=== PATIENT | female | born 1975 | race Caucasian/White ===

== ENCOUNTER → 2018-11-03 09:20 | Outpatient (CLI) | payer OTHER, SELFPAY ==
--- NOTE | 2018-11-03 09:23 | MM_ITS ---
MM Dig screening mamm BI w/CAD ORDERING PHYSICIAN : Atif Lazo MD PATIENT AGE: 43 years GENDER: Female COMPARISON: Bilateral mammogram October 2017 & January 2015 distal left mammogram and ultrasound studies 10/30/2017 Right mammogram September 2015 INDICATION: ITS.REASON: SCREENING TECHNIQUE: Standard CC and MLO images were obtained. R2 CAD reviewed. FINDINGS: Asymmetric breast. Increased overall density reflecting increased fibroglandular elements again seen throughout the upper-outer quadrant left breast more so than right . RIGHT BREAST:. Stable right breast follow-up in one year adequate. LEFT BREAST: Again suggestion of focal nodularity at upper-outer quadrant left breast best seen at the lateral breast on today's cc views. This area Labeled X. This was noted before and seem to compress out however since it appears slightly larger and slightly more apparent on today's cc view (measuring 13 mm transverse), suggest follow-up spot views & ultrasound to again further evaluate. This this area labeled X is within a area of diffuse breast density & with this the routine screening mammography images are somewhat limited. Thus ultrasound and spot views will be helpful compliment to again evaluate this area IMPRESSION: 1. Left breast.: Vague focal ovoid density upper-outer quadrant left breast labeled X again seen, within a region of dense breast tissue.. This was previously evaluated but seems to be slightly larger on today's cc view. Although this could be due to overlapping shadows, would again recommend spot views, & ultrasound to further evaluate this area at left breast. 2. Right breast: . Stable right breast follow-up in one year BI-RADS Category: 0 Need Additional Imaging Evaluation RECOMMENDED FOLLOW-UP: IMM - IMMEDIATE FOLLOW-UP RECOMMENDED Additional Spot views & Ultrasound left breast- to further evaluate vague focal area of density labeled X (A letter has been sent to the patient regarding results of the study.)
== END ==
PROVIDERS: PCP Physician Assistant; Visit Provider Obstetrics & Gynecology
DX: Z12.31 Encounter for screening mammogram for malignant neoplasm of breast (principal)
CPT/HCPCS: 77067

== ENCOUNTER → 2018-12-03 15:14 | Outpatient (CLI) | payer OTHER, SELFPAY ==
--- NOTE | 2018-12-03 15:17 | MM_ITS ---
MM Dig mamm DX unilat LT CAD, US breast LT complete INDICATION: Follow-up abnormal mammogram, asymmetric density ORDERING PHYSICIAN: Atif Lazo MD PATIENT AGE: 43 years COMPARISON: 11/03/2018, 10/30/2017 TECHNIQUE: Dense fibroglandular tissue which decreases the sensitivity of mammography FINDINGS: There is an asymmetric rounded area of increased density in the lateral aspect of the left breast with central area of lucency. This has a similar appearance when compared to 10/30/2017 compression views only well-seen on the cc view. No malignant appearing mass or malignant appearing microcalcification. Left breast ultrasound: COMPARISON is made to 10/30/2017. 3 mm cyst at 12:00 3 mm cyst at 1:00 5 mm cyst 2:00 near the nipple.. Additional 4 mm cyst at 2:00 near the nipple Small nodes are present in the axilla. No discrete mass is evident that correspond to the mammographic abnormality. IMPRESSION: Overall stable appearance compared to 10/30/2017 exam. No evidence of malignancy. Asymmetric density is felt to be related to overlapping fibroglandular tissue and is stable BI-RADS Category: 2 Benign Finding(s) RECOMMENDED FOLLOW-UP: 1YR - 1 YEAR FOLLOW-UP (A letter has been sent to the patient regarding results of the study.)
== END ==
PROVIDERS: PCP Physician Assistant; Visit Provider Obstetrics & Gynecology
DX: N63.20 Unspecified lump in the left breast, unspecified quadrant (principal)
CPT/HCPCS: 76641; 77065

== ENCOUNTER → 2019-12-22 16:12 | Outpatient (CLI) | payer OTHER, SELFPAY ==
--- NOTE | 2019-12-22 16:12 | MM_ITS ---
PROCEDURE: MM DIG SCREENING MAMM BI W/CAD CLINICAL INDICATION: screening mammogram There is no personal or family history of breast cancer COMPARISON: [facility] MM Dig screening mamm BI w/CAD from 11/03/2018 DXLT MM Dig mamm DX unilat LT CAD from 12/03/2018 TECHNIQUE: Standard CC and MLO images were obtained. Hay images were performed.. FINDINGS: [id number] fibroglandular densities are seen in both breast primarily upper outer quadrants. The findings of bilateral and symmetrical. There is a mole marker left breast. Hay images were reviewed showing no persistent suspicious abnormality. No suspicious microcalcifications. IMPRESSION: Moderate breast density with no suspicious lesions seen BI-RAD Category: 1 Negative FOLLOW-UP: 1YR 1 Year Follow-up (A letter has been sent to the patient regarding results of the study.) Dictated by: Dr. Howard Hawley MD 12/28/2019 11:[address] Howard Hawley MD in [place] 12/28/2019 11:37
== END ==
PROVIDERS: PCP Physician Assistant; Visit Provider Obstetrics & Gynecology
DX: Z12.31 Encounter for screening mammogram for malignant neoplasm of breast (principal)
CPT/HCPCS: 77063; 77067

== ENCOUNTER → 2021-02-28 09:16 | Outpatient (CLI) | payer OTHER, SELFPAY ==
--- NOTE | 2021-02-28 09:17 | MM_ITS ---
PROCEDURE: MM DIG SCREENING MAMM BI W/CAD Digital Breast Tomosynthesis Included CLINICAL INDICATION: screening There is no personal or family history of breast cancer. COMPARISON: MG [facility] MM Dig screening mamm BI w/CAD from 11/03/2018 MG DXLT MM Dig mamm DX unilat LT CAD from 12/03/2018 MG MM DIG SCREENING MAMM BI W/CAD from 12/22/2019 TECHNIQUE: Standard CC and MLO images and 3D Tomosynthesis was obtained. R2 CAD reviewed. FINDINGS: Mild to moderate fibroglandular densities are seen in both breast primarily upper outer quadrants. There is a mole marker left breast. There is a low-lying node left axilla. There is no suspicious lesion in either breast and no suspicious microcalcifications. IMPRESSION: Mild to moderate breast density with no suspicious lesions seen BI-RAD Category: 2 Benign Finding(s) FOLLOW-UP: 1YR 1 Year Follow-up (A letter has been sent to the patient regarding results of the study.) Dictated by: Dr. Howard Hawley MD 03/06/2021 08:40 Dr. Howard Hawley MD in [place] 03/06/2021 08:40
== END ==
PROVIDERS: PCP Physician Assistant; Visit Provider Obstetrics & Gynecology
DX: Z12.31 Encounter for screening mammogram for malignant neoplasm of breast (principal)
CPT/HCPCS: 77063; 77067

== ENCOUNTER → 2022-03-06 07:41 | Outpatient (CLI) | payer OTHER, SELFPAY ==
--- NOTE | 2022-03-06 07:41 | MM_ITS ---
PROCEDURE INFORMATION: Exam: MG Bilateral Screening 3D Mammography Exam date and time: 03/06/2022 7:57 AM Age: 46 years old Clinical indication: Screening examination. No family history of breast cancer. TECHNIQUE: Imaging protocol: Bilateral Screening tomosynthesis and 2D mammography including computer-aided detection (CAD) when performed. COMPARISON: 1. MG MM DIG SCREENING MAMM BI W/CAD 02/28/2021 9:21 AM 2. MG MM DIG SCREENING MAMM BI W/CAD 12/22/2019 4:25 PM 3. MG DXLT MM Dig mamm DX unilat LT CAD 12/03/2018 3:34 PM 4. MG [facility] MM Dig screening mamm BI w/CAD 11/03/2018 9:41 AM FINDINGS: MAMMOGRAPHY: Breast composition: The breast tissue is composed of scattered areas of fibroglandular density. Mass: No suspicious mass. Architectural distortion: None. Calcifications: No suspicious calcifications. Asymmetric density: No developing asymmetry. Skin thickening: None. Axillary adenopathy: None. IMPRESSION: No mammographic evidence of malignancy. Annual screening is recommended unless otherwise clinically indicated. ASSESSMENT: BI-RADS Category 1: Negative
== END ==
PROVIDERS: PCP Nurse Practitioner Family; Visit Provider Obstetrics & Gynecology
DX: Z12.31 Encounter for screening mammogram for malignant neoplasm of breast (principal)
CPT/HCPCS: 77063; 77067

== ENCOUNTER → 2023-03-20 16:12 | Outpatient (CLI) | payer OTHER, SELFPAY ==
--- NOTE | 2023-03-20 16:13 | MM_ITS ---
PROCEDURE INFORMATION: Exam: MG Bilateral Screening 3D Mammography Exam date and time: 03/20/2023 4:07 PM Age: 47 years old Clinical indication: Screening mammogram TECHNIQUE: Imaging protocol: Bilateral Screening tomosynthesis and 2D mammography including computer-aided detection (CAD) when performed. COMPARISON: 1. MG MM DIG SCREENING MAMM BI W/CAD 03/06/2022 7:57 AM 2. MG MM DIG SCREENING MAMM BI W/CAD 02/28/2021 9:21 AM 3. MG MM DIG SCREENING MAMM BI W/CAD 12/22/2019 4:25 PM 4. MG DXLT MM Dig mamm DX unilat LT CAD 12/03/2018 3:34 PM FINDINGS: MAMMOGRAPHY: Breast composition: The breast is heterogeneously dense, which may obscure small masses. Mass: None. Architectural distortion: No new or suspicious architectural distortion. Calcifications: No new or suspicious calcifications are present Asymmetric density: No new or suspicious asymmetric density is present Skin thickening: None. Axillary adenopathy: None. IMPRESSION: No mammographic evidence of malignancy. Recommend annual screening mammography unless otherwise clinically indicated. ASSESSMENT: BI-RADS category 1: Negative
== END ==
PROVIDERS: PCP Nurse Practitioner Family; Visit Provider Obstetrics & Gynecology
DX: Z12.31 Encounter for screening mammogram for malignant neoplasm of breast (principal)
CPT/HCPCS: 77063; 77067

== ENCOUNTER → 2023-05-01 16:34 | Outpatient (CLI) | payer OTHER, SELFPAY ==
--- NOTE | 2023-05-01 16:40 | US_ITS ---
PROCEDURE INFORMATION: Exam: US Pelvis, Transvaginal Exam date and time: 05/01/2023 5:02 PM Age: 47 years old Clinical indication: Menstruation abnormalities; Irregular menstruation; Prior surgery; Surgery date: 6+ months; Surgery type: RT oopherectomy; Additional info: Abnormal heavy uterine bleeding TECHNIQUE: Imaging protocol: Real-time transvaginal pelvic ultrasound with image documentation. Transvaginal imaging was used for better evaluation of the endometrium, adnexa, and/or cervix. COMPARISON: No relevant prior studies available. FINDINGS: Uterus: Uterine fibroids measure up to 2.4 cm. Uterus measures 8 x 4.7 x 5.2 cm. The endometrium is 13 mm in thickness. Cervix: Nabothian cysts noted. Right ovary/adnexa: The right ovary is surgically absent. Left ovary/adnexa: There is a 1.5 cm echogenic left ovarian follicle that could be an involuting dominant follicle or a hemorrhagic cyst. Intraperitoneal space: No free fluid. IMPRESSION: 1. Uterine fibroids measure up to 2.4 cm. 2. There is a 1.5 cm echogenic left ovarian follicle that could be an involuting dominant follicle or a hemorrhagic cyst. 3. The endometrium is 13 mm in thickness. This is within normal limits for a premenopausal patient.
== END ==
PROVIDERS: PCP Nurse Practitioner Family; Visit Provider Obstetrics & Gynecology
DX: N93.9 Abnormal uterine and vaginal bleeding, unspecified (principal)
CPT/HCPCS: 76830

== ENCOUNTER 2024-04-23 09:42 | Outpatient (CLI) | payer BC, SELFPAY ==
--- NOTE | 2024-04-23 09:47 | MM_ITS ---
PROCEDURE INFORMATION: Exam: MG Bilateral Screening 3D Mammography Exam date and time: 04/23/2024 9:59 AM Age: 48 years old Clinical indication: Screening examination TECHNIQUE: Imaging protocol: Bilateral Screening tomosynthesis and 2D mammography including computer-aided detection (CAD) when performed. COMPARISON: 1. MG MM DIG SCREENING MAMM BI W/CAD 03/20/2023 4:07 PM 2. MG MM DIG SCREENING MAMM BI W/CAD 03/06/2022 7:57 AM FINDINGS: MAMMOGRAPHY: Breast composition: The breasts are heterogeneously dense, which may obscure small masses. Mass: None. Architectural distortion: None. Calcifications: No suspicious calcifications. Asymmetric density: None. Skin thickening: None. Axillary adenopathy: None. IMPRESSION: No mammographic evidence of malignancy. Annual screening is recommended unless otherwise clinically indicated. ASSESSMENT: BI-RADS Category 1: Negative
== END 2024-04-23 23:59 | disposition home or self-care (01) ==
LOC: RAD 09:42
PROVIDERS: PCP Nurse Practitioner Family; Visit Provider Obstetrics & Gynecology
DX: Z12.31 Encounter for screening mammogram for malignant neoplasm of breast (principal)
CPT/HCPCS: 77063; 77067

== ENCOUNTER 2024-05-06 14:41 | Outpatient (CLI) | payer BC, SELFPAY ==
--- NOTE | 2024-05-06 14:49 | US_ITS ---
PROCEDURE: US TRANSVAGINAL CLINICAL INDICATION: Pelvic Pain COMPARISON: US US TRANSVAGINAL from 05/01/2023 FINDINGS: Transvaginal sonographic images of the pelvis were obtained. UTERUS: 8.1cm x 5.4cmx 4.5cm anteverted with a combined endometrial thickness of 13.3mm. The endometrium appears homogeneous. There is a nabothian cyst measuring 1.6 cm. There is an anterior fibroid measuring 2.2 cm x 1.7 cm x 2.3 cm. Similar in size from her ultrasound 1 year ago. There is a 2nd small anterior fibroid measuring 1.2 cm x 1.2 cm x 1.1 cm. LEFT OVARY: 2.5cmx4.1cmx4.1cm with a volume of 21.7ml. There are 3 discrete follicles within the left ovary giving it a multi-cystic appearance. The largest measures 2.3 cm. RIGHT OVARY: Not visualized. Surgically absent. Doppler flow to left ovary is seen. There is no fluid in the cul-de-sac. IMPRESSION: 1. Anteverted uterus normal in shape and size. The endometrium is homogeneous and normal measuring 13.3 mm. 2. There are two fibroids within the anterior myometrium. Fibroid #1 measures 2.3 cm and fibroid #2 measures 1.2 cm. 3. The right ovary is surgically absent. The left ovary has 3 discrete follicles. The largest measures 2.3 cm. 4. No fluid in the cul-de-sac. Dictated by: Hima Stuart MD 05/06/2024 17:33 Hima Stuart MD in [place] 05/06/2024 17:33
== END 2024-05-06 23:59 | disposition home or self-care (01) ==
LOC: RAD 14:44
PROVIDERS: PCP Nurse Practitioner Family; Visit Provider Obstetrics & Gynecology
DX: R10.2 Pelvic and perineal pain (principal); N88.2 Stricture and stenosis of cervix uteri; R87.618 Other abnormal cytological findings on specimens from cervix uteri; Z80.49 Family history of malignant neoplasm of other genital organs
CPT/HCPCS: 76830

== ENCOUNTER 2025-05-14 13:06 | Outpatient (CLI) | payer BC, SELFPAY ==
--- OUTSIDE RECORDS SUMMARY | 2025-05-14 13:08 | XMS_ITS | Continuity of Care Document ---
Author Organization [place] [employer] Address [address] [place] [address] Assessment No assessment recorded. Plan of Treatment Reminders Order Date Submit Date Provider Last Modified By Organization Details Last Modified Time Details Appointments None recorded. Lab noninvasive colorectal cancer DNA + occult blood screening, QL, stool 2024 025 [place] [employer] (Cologuard Orders Only), [address] [facility], [place] [address], [place], [address], 5 07:52:13 Referral None recorded. Procedures None recorded. Surgeries None recorded. Imaging XR, lumbar spine 2024 025 [email or web address] 7 [facility], [address] [place] [address], [phone], 5 13:29:09 Medication Orders omeprazole 40 mg capsule,del ayed release 2024 025 [place] [facility], [facility] [address], [facility] [address], [place], [id number], 5 14:01:30 amoxicillin 875 mg-potassiu m clavulanate 125 mg tablet 2024 025 [facility], [address] [place] [address], [address], 5 16:44:58 Patient TargetsNo targets recorded. Patient Instructions Encounter Date Encounter Id Patient Instructions Last Modified By Organization Details Last Modified Time 04/19/2025 [id number] Acute Sinusitis: Care Instructions [email or web address] Not available 04/19/2025 14:01:26 Reason for Referral None Reported. Results Created Date Observation Date Name Description Value Unit Range Abnormal Flag Note LastModifiedBy Organization Detail LastModifiedTime 04/19/20 25 XR, lumba r spine No observ ation record ed. [facility] - [address], [address], 04/19/2025 17:42:46 Result Notes None recorded. Problems Name Problem SNOMED Code Status Onset Date Resolution Date Notes Provider Name and Address Organization Details Recorded Time Pain of multiple joints 42286433 Active 2024 KAELA Hall [address] [place] [address], [address], [employer] 5 10:27:18 Constipatio n 55218866 Active 2024 KAELA Hall [address] [place] [address], [address], [employer] 5 10:27:05 Hypothyroid ism 38956576 Active 2024 KAELA Hall [address] [place] [address], [address], [employer] 5 10:27:16 Essential hypertensio n 16328805 Active 2024 KAELA Hall [address] [place] [address], [address], [employer] 5 10:27:08 Mild intermitten t asthma 526184361 Active 2024 KAELA Hall [address] [place] [address], [address], [employer] 5 10:27:14 Hyperlipide abdirahman 57348983 Active 2024 KAELA Hall [address] [place] [address], [address], [employer] 5 10:27:12 Pain in bilateral legs 3096653543057 9108 Active 2024 KAELA Hall [address] [place] [address], [address], [place] [employer] 5 11:26:01 Bilateral lower limb edema 371098705 Active 2024 KAELA Hall [address] [place] [address], [address], [place] [employer] 5 10:22:33 Hypercholes terolemia 57568956 Active Chayo Vice null, [employer] 5 13:31:13 Asthma 672970769 Active Chayo Vice null, [employer] 5 13:31:13 Lipedema 384093215 Active Chayo Vice null, [employer] 5 13:31:13 Hypertensiv e disorder 39219021 Active Chayo Vice null, [employer] 5 13:31:13 History of cholecystec lyle 909840240 Active Chayo Vice null, [employer] 5 13:31:13 Swelling of lower limb 763673792 Active Chayo Vice null, [employer] 5 13:31:13 Varicose veins of lower extremity 33339345 Active Chayo Vice null, [employer] 5 13:31:13 Acute maxillary sinusitis 68432474 Active 2024 KAELA Hall [address] [place] [address], [address], [place] [employer] 5 13:59:33 Gastroesoph ageal reflux disease without esophagitis 258165255 Active 2024 KAELA Hall [address] [place] [address], [address], [employer] 5 14:00:33 Lumbar radiculopat hy 198234693 Active 2024 KAELA Hall [address] [place] [address], [address], [employer] 5 14:07:38 Problem Notes None recorded. Procedures Surgical History Date Name Laterality Status Provider Name and Address Organization Details Recorded Time 4 Most Recent Mammogram completed [employer] [facility] [employer] 01/22/2025 11:02:21 Date of Last Pap Smear completed [employer] [facility] 01/22/2025 11:04:50 Colposcopy completed [employer] [facility] [employer] 12/29/2024 12:58:43 Gallbladder Surgery completed [employer] [facility] [employer] 12/29/2024 12:58:43 Imaging Results None recorded. Procedure Notes None recorded. Medical Equipment None Reported. Allergies No known drug allergies Medications Name Sig Start Date Stop Date Status Note LastModified by Organization Details LastModified Time atorvastati n 10 mg tablet (10 mg) active Not Available Not Available Not Available omeprazole 40 mg capsule,del ayed release Take 1 capsule every day by oral route for 90 days. 2024 active Not Available Not Available Not Avai lable Depo-Medrol 80 mg/mL suspension for injection Take 1 mL by injection route. 04/19 completed Not Available Not Available Not Available levothyroxi ne 100 mcg tablet (100 mcg) active Not Available Not Available No t Available levothyroxi ne 88 mcg tablet Take 1 tablet every day by oral route as directed for 90 days. 12/31 completed Not Available Not Available Not Available cephalexin 500 mg capsule TAKE 1 CAPSULE BY MOUTH TWICE DAILY FOR 10 DAYS 12/26 completed Not Available Not Available Not Available levothyroxi ne 125 mcg tablet TAKE 1 TABLET BY MOUTH EVERY DAY 12/26 completed Not Available Not Available Not Available diclofenac sodium 75 mg tablet,fred yed release (75 mg) active Not Available Not Available Not Available montelukast 10 mg tablet (10 mg) active Not Available Not Available Not Available hydrochloro thiazide 25 mg tablet (25 mg) active Not Available Not Available No t Available albuterol sulfate HFA 90 mcg/actuati on aerosol inhaler Inhale 2 puffs every 4 hours by inhalatio n route as directed for 90 days, for asthma. active Not Available Not Available No t Available ketorolac 60 mg/2 mL intramuscul ar solution Inject 2 mL by intramusc ular route. 04/19 completed Not Available Not Available Not Available lisinopril 40 mg tablet (40 mg) active Not Available Not Available Not Available amoxicillin 875 mg-potassiu m clavulanate 125 mg tablet TAKE ONE TABLET BY MOUTH every 12 hours FOR 10 DAYS active Not Available Not Available No t Available Linzess 145 mcg capsule (145 mcg) active Not Available Not Availabl e Not Available Vitals Date Recorded Body height Body mass index (BMI) Body weight Oxygen saturation Oxygen saturation in Arterial blood by Pulse oximetry Heart rate Body temperature Systolic blood pressure Diastolic blood pressure Provider Name and Address Organization Details Last Updated DateTime 152.4 cm 32.7 kg/m2 15550.6 4 g 97 % 97 % 78 /min 98.1 [degF] 120 mm[Hg] 82 mm[Hg] [employer]. 13:35:04 Social History Question Answer Notes LastModified by Organizat ion Details LastModified Time Tobacco Smoking Status Former Smoker [employer]o [employer] 12/29/2024 12:58:43 Do You Have An Advance Directive? No Information not available 12/29/2024 Is Your Home Air Conditioned? Yes Information not available 12/29/2024 If You Are , What Was Your Level Of Alcohol Consumption Prior To ? None Information not available 12/29/2024 Do You Wear A Helmet When Biking? No Information not available 12/29/2024 Are You Blind Or Do You Have Difficulty Seeing? No Information not available 12/29/2024 What Is Your Level Of Caffeine Consumption? Moderate Information not available 12/29/2024 What Type Of Java Architect Do You Use? None Information not available 12/29/2024 In The 14 Days Before Symptom Onset, Have You Had Close Contact With A Laboratory-confir med COVID-19 While That Case Was Ill? No [email or web address] Information not available 01/22/2025 In The 14 Days Before Symptom Onset, Have You Had Close Contact With A Person Who Is Under Investigation For COVID-19 While That Person Was Ill? No Information not available 01/22/2025 Have You Been To An Area Known To Be High Risk For COVID-19? No Information not available 12/29/2024 Are You Deaf Or Do You Have Serious Difficulty Hearing? No Information not available 12/29/2024 What Type Of Diet Are You Following? REGULAR Information not available 12/29/2024 Who Is Your Employer? [employer] Information not available 12/29/2024 How Many Days Of Moderate To Strenuous Exercise, Like A Brisk Walk, Did You Do In The Last 7 Days? 1 Information not available 12/29/2024 Have There Been Any Changes To Your Family Or Social Situation? No Information no t available 12/29/2024 When Did You Quit Smoking? 11-15yearssinc elastcigarette Information not available 12/29/2024 Are There Any Guns Present In Your Home? Yes Information not available 12/29/2024 Which Of Your Hands Is Dominant? Left Information not available 12/29/2024 What Is Your Home Situation? Other Information not available 12/29/2024 Do You Have A Medical Power Of Research Soil Scientist? No Information not available 12/29/2024 What Was The Date Of Your Most Recent Tobacco Screening? 04/19/2025 Information not available 04/19/2025 Are There Any Occupational Health Risks Where You Work? No Information not available 12/29/2024 What Is Your Current Pack Years? 10packyears Information not available 12/29/2024 Do You Have Any Pets? Yes Information not available 12/29/2024 Do You Use Protection During Sex? No Information not available 12/29/2024 What Is Your Relationship Status? Information not available 12/29/2024 Have You Repeated Any Grades? No Information not available 12/29/2024 Do You Use Your Seat Belt Or Car Seat Routinely? Yes Information not available 12/29/2024 Are You Sexually Active? Yes Information not available 12/29/2024 Do You Have Smoke And Carbon Monoxide Detectors In Your Home? Yes Information not available 12/29/2024 At What Age Did You Start Smoking Tobacco? 27 Information not available 12/29/2024 Are You Passively Exposed To Smoke? No Information no t available 12/29/2024 Are There Any Smokers In Your House? Yes Information not available 12/29/2024 How Much Tobacco Do You Smoke? No Information not available 12/29/2024 Do You Participate In Social Media? Yes Information not available 12/29/2024 Do You Use Sunscreen Routinely? No Information not available 12/29/2024 Has Tobacco Cessation Counseling Been Provided? No Information not available 12/29/2024 How Many Years Have You Smoked Tobacco? 13 Information not available 12/29/2024 Have You Recently Traveled Abroad? No Information not available 12/29/2024 Do You Have Difficulty Walking Or Climbing Stairs? No Information not available 12/29/2024 Are You Currently In School? No Information not available 12/29/2024 Do You Have Any Dietary Restrictions? No Information not available 12/29/2024 Sex: Female Functional Status Question Answer Note LastModified by Organizat ion Details LastModified Time Do you use any illicit or recreational drugs? No Information not available 12/29/2024 Do you or have you ever used any other forms of tobacco or nicotine? No Information not available 12/29/2024 What is your level of alcohol consumption? None Information not available 12/29/2024 Are you currently employed? Yes Information not available 12/29/2024 Do you have transportation difficulties? No Information not available 12/29/2024 Are you able to walk? YESWOREST Information not available 12/29/2024 Do you have difficulty doing errands alone? No Information not available 12/29/2024 Are you able to care for yourself? 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 No Information not available 12/29/2024 What is your exercise level? Occasional Information not available 12/29/2024 Mental Status Question Answer Note LastModified by Organizat ion Details LastModified Time Do you feel stressed (tense, restless, nervous, or anxious, or unable to sleep at night)? [id number] Information not available 12/29/2024 Do you have difficulty concentrating, remembering or making decisions? No Information no t available 12/29/2024 Are you or have you been involved with bullying? No Information not available 12/29/2024 Family History Relationship Description Onset Age of this Age Resolved Age Notes LastModified by Organization Details LastModified Time Mother Malignant tumor of cervix Not available 2024 12:58:42 Mother Arthritis Not available 12/29/2024 12:58:42 Mother Hypertensive disorder Not available 2024 12:58:42 Medical History Condition Response Thyroid Problems Y Hypertension Y Asthma Y High Cholesterol Y Gynecological History Statement/Question Response Abnormal Pap N Flow Moderate Date of LMP 03/29/2025 HPV Vaccine N Duration of Flow (days) 7 days Age at Menarche 13 Most Recent Mammogram 04/23/2024 Age at First Child 1 Frequency of Cycle (Q days) 29 Menses Monthly Y Date of Last Pap Smear 04/12/2024 LMP Approximate Obstetrics History GPAL:G 1 P 0 0 1 0 Type Value Multiple Births 0 Full Term 0 Induced 0 Spontaneous 0 Premature 0 Living 0 Ectopics 1 Total 1 Immunizations Vaccine Type Date Status Note Provider Nam e and Address Organization Details Recorded Time COVID-19, mRNA, LNP-S, PF, 30 mcg/0.3 mL dose 12/14/2020 completed Chayo Vice null, [employer] 12/29/2024 12:58:53 COVID-19, mRNA, LNP-S, PF, 30 mcg/0.3 mL dose 01/03/2021 completed Chayo Vice null, [employer] 12/29/2024 12:58:53 Influenza, split virus, quadrivalent, PF 01/15/2023 completed Chayomaria g holguin, [employer] 12/29/2024 12:58:53 Past Encounters Encounter ID Performer Location Encounter Start Date Encounter Closed Date Diagnosis/Indication Diagnosis SNOMED-CT Code Diagnosis ICD10 Code Diagnosis Note [id number] KAELA Hall [facility] [address] [place] [address] 04/19/2025 13:15:11 04/19/2025 14:19:05 Screening for malignant neoplasm of colon 316689498 Z12.11 Acute maxi llary sinusitis 20138211 J01.00 Gastroesop hageal reflux disease without esophagitis 586688692 K21.9 Lumbar radiculopathy 128 934641 M54.16 May need MRI but Xray lumbar spine (has failed PT and chiro) Health Concerns Section Related Observation LastModified by Organization Detai ls LastModified Time None Recorded Concern Status LastModified by Organization Details LastModified Time None Recorded Payers Encounter Date Sequence Insurance Name Policy Number Policy Torrse Covered Member ID Torres Member ID Guarantor Name 04/19/2025 1 [employer] [id number] Torri Mejia [id number] Torri Mejia Notes Date Note Type Note Provider Name and Address Organization Details Recorded Time 04/19/2025 text/html Patient presents for followup.Sinus pain and pressure for 1 week. Allergy meds not helping. Pain worse when she bends forwards and she gets dizzy.Thinks she has acid reflux. Used to be on Omeprazole. Gets choked after eating and vomits bile/phlegm.Low back pain is getting worse. Worse on right side. She has seen chiropractor with no improvement in pain. Did PT in the past. Has seen leg/vein specialist but doesn't have $4000 for the surgery. KAELA Hall [address] [place] [address], [place], [address], [place] [facility] [employer] 04/19/2025 16:31:31 OBGyn Episode No OBEpisode recorded.
--- OUTSIDE RECORDS SUMMARY | 2025-05-14 13:09 | XMS_ITS | Data Portability ---
Author Organization [place] - [facility] - [place] [facility] [place] ORIN ADMIN Address [address] [place] [id number] Care Team Providers Care Sales Store Checker Name Role Phone TAVO HOLLINS Primary Care Provider [phone] Assessment Encounter Date Assessment Date Assessment LastModified by Organization Details LastModified Time 01/29/2024 01/29/2024 Blood drawn in Right AC by ALISTAIR Carrero, patient tolerated well [email or web address] Not available 01/29/2024 12:51:18 02/26/2024 02/26/2024 Blood drawn in Left AC by ALISTAIR Carrero, patient tolerated well [email or web address] Not available 02/26/2024 10:33:10 Plan of Treatment Reminders Order Date Submit Date Provider Last Modified By Organization Details Last Modified Time Details Appointments None recorded. Lab Mycobacter ium tuberculos is stimulated gamma interferon , qual, blood 2023 024 [facility], [address] [place], [address], 4 16:10:28 TSH + free T4, serum 2023 024 [facility], [address] [place], [address], 4 09:37:58 rapid strep group A, throat 2023 024 [facility], [address] [place], [address], 4 11:03:17 influenza virus A + B + SARS-CoV-2 (COVID19) Ag panel, rapid IA, upper respirator y specimen 2023 024 [facility], [address] [place], [address], 4 11:03:17 TSH + free T4, serum 2023 024 [facility], [address] [place] [address], [address], 4 07:15:28 magnesium, serum or plasma 2023 024 [facility], [address] [place] [address], [address], 4 08:22:29 vitamin B12 + folate, serum or blood 2023 024 [facility], [address] [place] [address], [address], 4 08:22:28 CMP, serum or plasma 2023 024 [facility], [address] [place] [address], [address], 4 08:22:26 CBC w/ auto diff 2023 024 [facility], [address] [place] [address], [address], 4 08:22:25 TSH + free T4, serum 2023 024 [facility], [address] [place] [address], [address], 4 08:22:24 lipid panel, serum 2023 024 [facility], [address] [place] [address], [address], 4 08:22:27 Referral None recorded. Procedures None recorded. Surgeries None recorded. Imaging None recorded. Medication Orders cephalexin 500 mg capsule 2023 [id number], [address], [id number], 4 10:48:06 diclofenac sodium 75 mg tablet,del ayed release 2023 [facility][id number], [address], [id number], 4 15:54:55 albuterol sulfate HFA 90 mcg/actuat ion aerosol inhaler 2023 024 [facility][id number], [address] [place], [id number], 4 15:54:54 Patient TargetsNo targets recorded. Patient InstructionsNo instructions recorded. Reason for Referral None Reported. Results Created Date Observation Date Name Description Value Unit Range Abnormal Flag Note LastModifiedBy Organization Detail LastModifiedTime 01/29/2001/30/2024 TSH+F REE T4 TSH 0.029 uIU/m L 0.450- 4.500 below low normal Not Available [facility] ([facility]) [address] [place], [address], 01/30/2024 08:22:24 01/29/2001/30/2024 TSH+F REE T4 T4,free(dire ct) 2.54 NG/dL 0.82-1 .77 above high normal Not Available [facility] ([facility]) [address] [place], [address], 01/30/2024 08:22:24 01/29/20 24 01/30/2024 CBC WITH DIFFE RENTI AL/PL ATELE T WBC 7.2 x10e3 /uL 3.4-10 .8 Not Available [facility] ([facility]) [address] [place], [address], 01/30/2024 08:22:25 01/29/20 24 01/30/2024 CBC WITH DIFFE RENTI AL/PL ATELE T RBC 4.28 x10e6 /uL 3.77-5 .28 Not Available [facility] ([facility]) [address] [facility], [place], [address], 01/30/2024 08:22:25 01/29/20 24 01/30/2024 CBC WITH DIFFE RENTI AL/PL ATELE T hemoglobin 13.6 g/dL 11.1-1 5.9 Not Available [facility] ([facility]) [address] [facility], [place], [address], 01/30/2024 08:22:25 01/29/20 24 01/30/2024 CBC WITH DIFFE RENTI AL/PL ATELE T hematocrit 39.7 % 34.0-4 6.6 Not Available [facility] ([facility]) [address] [facility], [place], [address], 01/30/2024 08:22:25 01/29/20 24 01/30/2024 CBC WITH DIFFE RENTI AL/PL ATELE T MCV 93 fL 79-97 Not Available [facility] ([facility]) [address] [place], [address], 01/30/2024 08:22:25 01/29/20 24 01/30/2024 CBC WITH DIFFE RENTI AL/PL ATELE T MCH 31.8 pg 26.6-3 3.0 Not Available [facility] ([facility]) [address] [place], [address], 01/30/2024 08:22:25 01/29/20 24 01/30/2024 CBC WITH DIFFE RENTI AL/PL ATELE T MCHC 34.3 g/dL 31.5-3 5.7 Not Available [facility] ([facility]) [address] [place], [address], 01/30/2024 08:22:25 01/29/20 24 01/30/2024 CBC WITH DIFFE RENTI AL/PL ATELE T RDW 12.1 % 11.7-1 5.4 Not Available [facility] ([facility]) [address] [facility], [place], [address], 01/30/2024 08:22:25 01/29/20 24 01/30/2024 CBC WITH DIFFE RENTI AL/PL ATELE T platelets 317 x10e3 /uL 150-45 0 Not Available [facility] ([facility]) [address] [facility] [place], [address], 01/30/2024 08:22:25 01/29/20 24 01/30/2024 CBC WITH DIFFE RENTI AL/PL ATELE T neutrophils 49 % not estab. Not Available [facility] ([facility]) [address] [facility], [place], [address], 01/30/2024 08:22:25 01/29/20 24 01/30/2024 CBC WITH DIFFE RENTI AL/PL ATELE T lymphs 36 % not estab. Not Available [facility] ([facility]) [address] [facility], [place], [address], 01/30/2024 08:22:25 01/29/20 24 01/30/2024 CBC WITH DIFFE RENTI AL/PL ATELE T monocytes 9 % not estab. Not Available [facility] ([facility]) [address] [facility] [place], [address], 01/30/2024 08:22:25 01/29/20 24 01/30/2024 CBC WITH DIFFE RENTI AL/PL ATELE T eos 5 % not estab. Not Available [facility] ([facility]) [address] [facility], [place], [address], 01/30/2024 08:22:25 01/29/20 24 01/30/2024 CBC WITH DIFFE RENTI AL/PL ATELE T basos 1 % not estab. Not Available [facility] ([facility]) [address] [place], [address], 01/30/2024 08:22:25 01/29/20 24 01/30/2024 CBC WITH DIFFE RENTI AL/PL ATELE T immature cells WARDROBE MANAGER Not Available [facility] ([facility]) [address] [facility] [place], [address], 01/30/2024 08:22:25 01/29/20 24 01/30/2024 CBC WITH DIFFE RENTI AL/PL ATELE T neutrophils (absolute) 3.5 x10e3 /uL 1.4-7. 0 Not Available [facility] ([facility]) [address] [facility] [place], [address], 01/30/2024 08:22:25 01/29/20 24 01/30/2024 CBC WITH DIFFE RENTI AL/PL ATELE T lymphs (absolute) 2.6 x10e3 /uL 0.7-3. 1 Not Available [facility] ([facility]) [address] [place], [address], 01/30/2024 08:22:25 01/29/20 24 01/30/2024 CBC WITH DIFFE RENTI AL/PL ATELE T monocytes(ab solute) 0.7 x10e3 /uL 0.1-0. 9 Not Available [facility] ([facility]) [address] [place], [address], 01/30/2024 08:22:25 01/29/20 24 01/30/2024 CBC WITH DIFFE RENTI AL/PL ATELE T eos (absolute) 0.3 x10e3 /uL 0.0-0. 4 Not Available [facility] ([facility]) [address] [place], [address], 01/30/2024 08:22:25 01/29/20 24 01/30/2024 CBC WITH DIFFE RENTI AL/PL ATELE T baso (absolute) 0.1 x10e3 /uL 0.0-0. 2 Not Available [facility] ([facility]) [address] [facility], [place], [address], 01/30/2024 08:22:25 01/29/20 24 01/30/2024 CBC WITH DIFFE RENTI AL/PL ATELE T immature granulocytes 0 % not estab. Not Available [facility] ([facility]) [address] [facility] [place], [address], 01/30/2024 08:22:25 01/29/20 24 01/30/2024 CBC WITH DIFFE RENTI AL/PL ATELE T immature grans (abs) 0.0 x10e3 /uL 0.0-0. 1 Not Available [facility] ([facility]) [address] [facility], [place], [address], 01/30/2024 08:22:25 01/29/20 24 01/30/2024 CBC WITH DIFFE RENTI AL/PL ATELE T NRBC WARDROBE MANAGER Not Available [facility] ([facility]) [address] [facility] [place], [address], 01/30/2024 08:22:25 01/29/20 24 01/30/2024 CBC WITH DIFFE RENTI AL/PL ATELE T hematology comments: WARDROBE MANAGER Not Available [facility] ([facility]) [address] [place], [address], 01/30/2024 08:22:25 01/29/20 24 01/30/2024 COMP. METAB OLIC PANEL (14) glucose 90 mg/dL 70-99 Not Available [facility] ([facility]) [address] [place], [address], 01/30/2024 08:22:26 01/29/20 24 01/30/2024 COMP. METAB OLIC PANEL (14) BUN 28 mg/dL 6-24 above high normal Not Available [facility] ([facility]) [address] [place], [address], 01/30/2024 08:22:26 01/29/20 24 01/30/2024 COMP. METAB OLIC PANEL (14) creatinine 1.14 mg/dL 0.57-1 .00 above high normal Not Available [facility] ([facility]) [address] [facility] [place], [address], 01/30/2024 08:22:26 01/29/20 24 01/30/2024 COMP. METAB OLIC PANEL (14) eGFR 60 mL/mi n/1.7 3 >59 Not Available [facility] ([facility]) [address] [facility] [place], [address], 01/30/2024 08:22:26 01/29/20 24 01/30/2024 COMP. METAB OLIC PANEL (14) BUN/creatini ne ratio 25 9-23 above high normal Not Available [facility] ([facility]) [address] [facility] [place], [address], 01/30/2024 08:22:26 01/29/20 24 01/30/2024 COMP. METAB OLIC PANEL (14) sodium 139 mmol/ L 134-14 4 Not Available [facility] ([facility]) [address] [facility] [place], [address], 01/30/2024 08:22:26 01/29/20 24 01/30/2024 COMP. METAB OLIC PANEL (14) potassium 4.3 mmol/ L 3.5-5. 2 Not Available [facility] ([facility]) [address] [facility] [place], [address], 01/30/2024 08:22:26 01/29/20 24 01/30/2024 COMP. METAB OLIC PANEL (14) chloride 100 mmol/ L 96-106 Not Available [facility] ([facility]) [address] [facility], [place], [address], 01/30/2024 08:22:26 01/29/20 24 01/30/2024 COMP. METAB OLIC PANEL (14) carbon dioxide, total 23 mmol/ L Not Available [facility] ([facility]) [address] [place], [address], 01/30/2024 08:22:26 01/29/20 24 01/30/2024 COMP. METAB OLIC PANEL (14) calcium 9.7 mg/dL 8.7-10 .2 Not Available [facility] ([facility]) [address] [place], [address], 01/30/2024 08:22:26 01/29/20 24 01/30/2024 COMP. METAB OLIC PANEL (14) protein, total 7.4 g/dL 6.0-8. 5 Not Available [facility] ([facility]) [address] [place], [address], 01/30/2024 08:22:26 01/29/20 24 01/30/2024 COMP. METAB OLIC PANEL (14) albumin 4.5 g/dL 3.9-4. 9 Not Available [facility] ([facility]) [address] [place], [address], 01/30/2024 08:22:26 01/29/20 24 01/30/2024 COMP. METAB OLIC PANEL (14) globulin, total 2.9 g/dL 1.5-4. 5 Not Available [facility] ([facility]) [address] [place], [address], 01/30/2024 08:22:26 01/29/20 24 01/30/2024 COMP. METAB OLIC PANEL (14) A/G ratio 1.6 1.2-2. 2 Not Available [facility] ([facility]) [address] [place], [address], 01/30/2024 08:22:26 01/29/20 24 01/30/2024 COMP. METAB OLIC PANEL (14) bilirubin, total 0.7 mg/dL 0.0-1. 2 Not Available [facility] ([facility]) [address] [place], [address], 01/30/2024 08:22:26 01/29/20 24 01/30/2024 COMP. METAB OLIC PANEL (14) alkaline phosphatase 89 IU/L 44-121 Not Available [facility] ([facility]) [address] [place], [address], 01/30/2024 08:22:26 01/29/20 24 01/30/2024 COMP. METAB OLIC PANEL (14) AST (SGOT) 22 IU/L 0-40 Not Available [facility] ([facility]) [address] [place], [address], 01/30/2024 08:22:26 01/29/20 24 01/30/2024 COMP. METAB OLIC PANEL (14) ALT (SGPT) 29 IU/L 0-32 Not Available [facility] ([facility]) [address] [place], [address], 01/30/2024 08:22:26 01/29/20 24 01/30/2024 LIPID PANEL cholesterol, total 161 mg/dL 100-19 9 Not Available [facility] ([facility]) [address] [place], [address], 01/30/2024 08:22:27 01/29/20 24 01/30/2024 LIPID PANEL triglyceride s 165 mg/dL 0-149 above high normal Not Available [facility] ([facility]) [address] [place], [address], 01/30/2024 08:22:27 01/29/20 24 01/30/2024 LIPID PANEL HDL cholesterol 46 mg/dL >39 Not Available [facility] ([facility]) [address] [place], [address], 01/30/2024 08:22:27 01/29/20 24 01/30/2024 LIPID PANEL VLDL cholesterol opal 28 mg/dL 5-40 Not Available [facility] ([facility]) [address] [place], [address], 01/30/2024 08:22:27 01/29/20 24 01/30/2024 LIPID PANEL LDL chol calc ([facility]) 87 mg/dL 0-99 Not Available [facility] ([facility]) [address] [place], [address], 01/30/2024 08:22:27 01/29/20 24 01/30/2024 LIPID PANEL comment: WARDROBE MANAGER Not Available [facility] ([facility]) [address] [facility] [place], [address], 01/30/2024 08:22:27 01/29/20 24 01/30/2024 VITAM IN B12 AND FOLAT E vitamin B12 526 pg/mL 232-12 45 Not Available [facility] ([facility]) [address] [facility] [place], [address], 01/30/2024 08:22:28 01/29/20 24 01/30/2024 VITAM IN B12 AND FOLAT E folate (folic acid), serum 17.3 NG/mL >3.0 A serum folat e elvin ntrat ion of less than 3.1 ng/mL is consi dered to repre sent clini opal defic iency . Not Available [facility] ([facility]) [address] [facility] [place], [address], 01/30/2024 08:22:28 01/29/20 24 01/30/2024 MAGNE SIUM magnesium 2.1 mg/dL 1.6-2. 3 Not Available [facility] ([facility]) [address] [facility] [place], [address], 01/30/2024 08:22:29 02/26/20 24 02/27/2024 TSH+F REE T4 TSH 1.310 uIU/m L 0.450- 4.500 Not Available [facility] ([facility]) [address] [facility] [place], [address], 02/27/2024 07:15:28 02/26/20 24 02/27/2024 TSH+F REE T4 T4,free(dire ct) 1.83 NG/dL 0.82-1 .77 above high normal Not Available [facility] ([facility]) [address] [facility] [place], [address], 02/27/2024 07:15:28 02/26/20 24 02/26/2024 influ michele virus A + B + SARS- CoV-2 (COVI D19) Ag panel , rapid IA, upper respi rator y speci men FLU A negati ve Not Available [facility] [address] [place], [address], 02/26/2024 10:28:59 02/26/20 24 02/26/2024 influ michele virus A + B + SARS- CoV-2 (COVI D19) Ag panel , rapid IA, upper respi rator y speci men FLU B negati ve Not Available [facility] [address] [place], [address], 02/26/2024 10:28:59 02/26/20 24 02/26/2024 influ michele virus A + B + SARS- CoV-2 (COVI D19) Ag panel , rapid IA, upper respi rator y speci men SARS COV + SARS OV 2 negati ve Not Available [facility] [address] [place], [address], 02/26/2024 10:28:59 02/26/20 24 02/26/2024 rapid strep group A, throa t Strep negati ve Not Available [facility] [address] [place], [address], 02/26/2024 10:29:06 05/29/20 24 05/30/2024 TSH+F REE T4 TSH 4.340 uIU/m L 0.450- 4.500 Not Available [facility] ([facility]) [address] [place], [address], 05/30/2024 09:37:58 05/29/20 24 05/30/2024 TSH+F REE T4 T4,free(dire ct) 1.73 NG/dL 0.82-1 .77 Not Available [facility] ([facility]) [address] [place], [address], 05/30/2024 09:37:58 10/22/20 24 10/23/2024 QUANT IFERO N-TB GOLD PLUS quantiferon incubation INCUBA TION PERFOR MED. Not Available [facility] ([facility]) [address] [place], [address], 10/24/2024 16:10:28 10/22/20 24 10/23/2024 QUANT IFERO N-TB GOLD PLUS quantiferon criteria COMMEN T Quant iFERO N-TB Gold Plus is a quali tativ e indir ect test for M tuber culos is infec tion (incl uding disea se) and is inten ded for use in conju nctio n with risk asses sment , radio graph y, and other medic al and diagn ostic evalu ation s. The Quant iFERO N-TB Gold Plus resul t is deter mined by subtr actin g the Nil value from eithe r TB antig en (Ag) value . The Mitog en tube serve s as a contr ol for the test. Not Available [facility] ([facility]) [address] [place], [address], 10/24/2024 16:10:28 10/22/20 24 10/24/2024 QUANT IFERO N-TB GOLD PLUS quantiferon TB1 Ag value 0.01 IU/mL Not Available [facility]) [address] [place], [address], 10/24/2024 16:10:28 10/22/20 24 10/24/2024 QUANT IFERO N-TB GOLD PLUS quantiferon TB2 Ag value 0.01 IU/mL Not Available [facility]) [address] [place], [address], 10/24/2024 16:10:28 10/22/20 24 10/24/2024 QUANT IFERO N-TB GOLD PLUS quantiferon nil value 0.00 IU/mL Not Available [facility] ([facility]) [address] [place], [address], 10/24/2024 16:10:28 10/22/20 24 10/24/2024 QUANT IFERO N-TB GOLD PLUS quantiferon mitogen value >10.00 IU/mL Not Available [facility] ([facility]) [address] [place], [address], 10/24/2024 16:10:28 10/22/20 24 10/24/2024 QUANT IFERO N-TB GOLD PLUS quantiferon- TB gold plus NEGATI VE negati ve No respo nse to M alvaro tijerina is antig ens detec jennyfer. Infec tion with M alvaro noyolaos is is unlik jarad, but high risk indiv idual s shoul d be consi dered for addit ional testi ng (ATS/ IDSA/ CDC Clini opal Pract ice Guide lines , 2017) . The refer ence range is an Antig en minus Nil resul t of <0.35 IU/mL . Chemi lumin escen ce immun oassa y metho dolog y Not Available [facility] ([facility]) [address] [facility] [place], [address], 10/24/2024 16:10:28 04/24/20 24 04/23/2024 imagi ng inter preta tion No observ ation record ed. [email or web address] [facility] [address], [place], [address], 04/24/2024 15:59:38 05/06/20 24 05/06/2024 imagi ng inter preta tion No observ ation record ed. [email or web address] [facility] [address], [place], [address], 05/08/2024 11:55:33 Result Notes None recorded. Problems Name Problem SNOMED Code Status Onset Date Resolution Date Notes Provider Name and Address Organization Details Recorded Time Hypothyroidism 83970852 Active 2021 Macrina holguin, [place] - [facility] - [place] [facility] [place] 2 08:38:26 Hyperlipidemia 91654610 Active 2021 Macrina [place] [facility] [place] 2 08:38:31 Gastroesophage al reflux disease 635864719 Active 2021 Macrina Mayer null, [place] - [facility] [place] [facility] [place] 2 08:38:47 Seasonal allergic rhinitis 995307416 Active 2021 Macrina Mayer null, [place] - [facility] [place] [facility] [place] 2 08:39:11 Essential hypertension 07000958 Active 2021 Macrina [place]gu[place], [place] - [facility] [place] [facility] [place] 2 08:39:18 Problem Notes None recorded. Procedures Surgical History Date Name Laterality Status Provider Name and Address Organization Details Recorded Time 04/29/20 23 completed TAVO HOLLINS NP [address] [place], [address], [place] [facility] [place] 05/10/2023 15:29:39 04/04/20 23 Date of Last Pap Smear completed TAVO HOLLINS NP [address] [place], [address], [place] [facility] [place] 05/10/2023 15:29:39 06/10/20 20 Date of Last Colonoscopy completed TAVO OHLLINS NP [address] [facility], [place], [address], [place] - [facility] - [place] [facility] [place] 05/10/2023 15:29:39 Other completed Macrina ASIF - [facility] - [place] [facility] [place] 11/15/2022 08:37:34 Cholecystectomy completed Macrina ASIF - [facility] & [place] 11/15/2022 08:41:26 operative procedure on ovary and/or fallopian tube completed Macrina ASIF - [facility] - [place] [facility] [place] 11/15/2022 08:41:55 Imaging Results None recorded. Procedure Notes None recorded. Medical Equipment None Reported. Allergies No known drug allergies Medications Name Sig Start Date Stop Date Status Note LastModified by Organization Details LastModified Time atorvastati n 20 mg tablet TAKE 1 TABLET BY MOUTH EVERY DAY 11/15 completed Not Available Not Available Not Available atorvastati n 10 mg tablet TAKE 1 TABLET BY MOUTH DAILY active Not Available Not Available No t Available hydroquinon e 4 % topical cream APPLY TO FACE TWICE DAILY 01/28 completed Not Available Not Available Not Available levothyroxi ne 100 mcg tablet TAKE 1 TABLET BY MOUTH EVERY DAY IN THE MORNING ON AN EMPTY STOMACH 06/06 completed Not Available Not Available Not Available hydrocortis one 2.5 % topical cream with perineal applicator INSERT RECTALLY WITH APLICATOR TWICE DAILY NEEDED FOR 10 DAYS 11/15 completed Not Available Not Available Not Available levothyroxi ne 88 mcg tablet Take 1 tablet every day by oral route. 2023 active Not Available Not Available Not Avai lable baclofen 10 mg tablet TAKE 1 TABLET BY MOUTH THREE TIMES DAILY FOR 14 DAYS NEEDED 01/28 completed Not Available Not Available Not Available cephalexin 500 mg capsule TAKE 1 CAPSULE BY MOUTH TWICE DAILY FOR 10 DAYS active Not Available Not Available No t Available levothyroxi ne 125 mcg tablet Take 1 tablet every day by oral route for 90 days. 08/06 completed Not Available Not Available Not Available diclofenac sodium 75 mg tablet,fred yed release TAKE 1 TABLET BY MOUTH TWICE DAILY active Not Available Not Available No t Available montelukast 10 mg tablet TAKE 1 TABLET BY MOUTH EVERY NIGHT AT BEDTIME active Not Available Not Available No t Available hydrochloro thiazide 25 mg tablet TAKE 1 TABLET BY MOUTH DAILY active Not Available Not Available No t Available albuterol sulfate HFA 90 mcg/actuati on aerosol inhaler Inhale 2 puffs every 4 hours by inhalatio n route as needed for 30 days. 2023 active Not Available Not Available Not Avai lable lisinopril 40 mg tablet TAKE 1 TABLET BY MOUTH DAILY 2024 active Not Available Not Available Not Avai lable atorvastati n 11/15 completed Not Available Not Available Not Available levothyroxi ne 11/15 completed Not Available Not Available Not Available hydrochloro thiazide 11/15 completed Not Available Not Available Not Available Singulair 11/15 completed Not Available Not Available Not Available Vitals Date Recorded Body height Body mass index (BMI) Body weight Body temperature Oxygen saturation Oxygen saturation in Arterial blood by Pulse oximetry Heart rate Systolic blood pressure Diastolic blood pressure Provider Name and Address Organization Details Last Updated DateTime 4 154.94 cm 31.9 kg/m2 36662.1 1 g 97.9 [degF] 99 % 99 % 85 /min 119 mm[Hg] 81 mm[Hg] Lee fairchild [facility] [place] 15:44:14 Social History Question Answer Notes LastModified by Organizat ion Details LastModified Time Tobacco Smoking Status Former Smoker Macrina Leyla holguin, [facility] & [place] 11/15/2022 08:41:14 Do You Have An Advance Directive? No Information not available 11/15/2022 Are You Blind Or Do You Have Difficulty Seeing? No Information not available 11/15/2022 What Is Your Level Of Caffeine Consumption? Occasional [email or web address] Information not available 06/06/2023 When Did You Quit Smoking? 1-5yearssincela martín [email or web address] Information not available 06/06/2023 What Was The Date Of Your Most Recent Tobacco Screening? 01/28/2024 [email or web address] Information not available 01/28/2024 Are You Passively Exposed To Smoke? Yes judit Information not available 05/10/2023 Has Tobacco Cessation Counseling Been Provided? No [email or web address] Information not available 06/06/2023 Sex: Unknown Functional Status Question Answer Note LastModified by Organizat ion Details LastModified Time Do you use any illicit or recreational drugs? No Information not available 11/15/2022 Do you or have you ever used any other forms of tobacco or nicotine? No Information not available 06/06/2023 What is your level of alcohol consumption? None Information not available 11/15/2022 Mental Status None recorded. Family History Relationship Description Onset Age of this Age Resolved Age Notes LastModified by Organization Details LastModified Time Mother Malignant neoplasm of uterus [facility] [email or web address] Not available 01/29/2024 13:30:16 Mother Malignant neoplasm of brain [facility] CHART_MERGE Not available 01/29/2024 13:30:16 Father Congestive heart failure [facility] CHART_MERGE Not available 01/29/2024 13:30:16 Brother Motor vehicle accident victim [facility] CHART_MERGE Not available 01/29/2024 13:30:16 Medical History Condition Response Hypothyroidism Y High Cholesterol Y Allergies/Hayfever Y Thyroid Problems Y Hypertension Y Gynecological History Statement/Question Response Abnormal Pap N 04/29/2023 Flow Heavy Date of Last Colonoscopy 05/11/2020 Date of LMP 04/29/2023 Sexually Active? Y Menses Monthly Y Duration of Flow (days) 4 Date of Last Pap Smear 04/04/2023 Current Control Method None Obstetrics History GPAL:G 0 P 0 0 0 0 Immunizations Vaccine Type Date Status Note Provider Nam e and Address Organization Details Recorded Time COVID-19, mRNA, LNP-S, PF, 30 mcg/0.3 mL dose 12/14/2020 completed Tiffany Montaño null, [place] - [facility] [place] [facility] [place] 04/23/2023 10:06:30 COVID-19, mRNA, LNP-S, PF, 30 mcg/0.3 mL dose 01/03/2021 completed Tiffany Montaño null, [place] - [facility] [place] [facility] [place] 04/23/2023 10:06:30 Past Encounters Encounter ID Performer Location Encounter Start Date Encounter Closed Date Diagnosis/Indication Diagnosis SNOMED-CT Code Diagnosis ICD10 Code Diagnosis Note [id number] TAVO HOLLINS NP [email or web address] [address] [place] [address] 11/15/2022 08:25:06 11/15/2022 09:17:00 Palpitations 14023996 R00.2 appt made for cardiac evaluation 11/27 10:15 AM; recommend holter monitor and stress test and lower ext arterialth yroid and other lab work normal in Aug except C-reactive protein was 55 Essential hypertension 88138562 I10 educated on goal of less than 130/90advi sed low sodium diet, healthy lifestyle including exercise as ablecontin ue current medication regimenER if any symptoms such as chest pain, shortness of breath [id number] TAVO HOLLINS NP [address] [place] [address] 05/10/2023 14:31:12 05/10/2023 15:33:05 Essential hypertension 60826871 I10 educated on goal of less than 130/90meet ing goaladvise d low sodium diet, healthy lifestyle including exercise as ablecontin ue current medication regimenER if any symptoms such as chest pain, shortness of breath labs drawn by judit Hypothyroidism 06844499 E03.9 asymptomat iccontroll ed with medication Osteoarthr itis of multiple joints 061101786 M15.9 controlled Seasonal a llergic rhinitis 601811684 J30.2 controlled Mixed hyperlipidemia 267 614873 E78.2 Patient advised to exercise, eat a prudent diet and lose weight as appropriat e.controll ed [id number] TAVO HOLLINS NP [address] [place] [address] 06/06/2023 15:22:27 06/06/2023 15:54:40 Spasm 54755343 R25.2 Patient presents with recurrent muscle pain/spasm s. Based on history, physical exam, and prior diagnostic studies/tr eatments, I recommend hydration, stretching , physical therapy, muscle relaxer. Discussed treatment plan with patient. [id number] Amado Arellano MD [address] [place] [address] 11/04/2023 11:45:52 11/04/2023 12:13:31 Adult health examination 567834194 Z00.00 [id number] TAVO HOLLINS NP [address] [place] [address] 01/28/2024 15:35:46 01/29/2024 13:31:25 Cough 15396565 R05.9 request refill on albuterol to use as needed with allergies/ season changes Osteoarthr itis of multiple joints 251997270 M15.9 controlled Mixed hyperlipidemia 267 986403 E78.2 Patient advised to exercise, eat a prudent diet and lose weight as appropriat e.controll ed Essential hypertension 48928983 I10 educated on goal of less than 130/90meet ing goaladvise d low sodium diet, healthy lifestyle including exercise as ablecontin ue current medication regimenER if any symptoms such as chest pain, shortness of breath pt will return to clinic for fasting blood work Acquired hypothyroidism 414530212 E03.9 recheck lab work fasting, will return for labtake medication first thing in AM on empty stomach Cramp in lower limb 4499 66417 R25.2 will increase water intakewill return for fasting lab work work including magnesium [id number] Amado Arellano MD [address] [place] [address] 01/29/2024 12:36:41 01/29/2024 12:51:39 Hypothyroidism 56391185 E03.9 Cramp in lower limb 4499 35785 R25.2 Essential hypertension 29597563 I10 [id number] Amado Arellano MD [address] [place] [address] 02/26/2024 10:14:10 02/26/2024 10:34:31 Hypothyroidism 84156192 E03.9 recheck thyroid level today Cough 35387701 R05.9 stay well hydratedre stmedicati ons as prescribed symptomati c management ER if any urgent signs or symptoms arise Sore throat 009538420 J0 2.9 warm salt water garglescha nge toothbrush hydrations ymptomatic management f/u if symptoms persist or worsen [id number] TAVO HOLLINS NP [address] [place] [address] 05/29/2024 12:37:47 05/29/2024 12:47:30 Hypothyroidism 84734470 E03.9 recheck thyroid level today [id number] TAVO HOLLINS NP [facility] [address] [facility] [place] [address] 10/22/2024 14:32:02 10/24/2024 03:54:05 Tuberculosis screening 434523044 Z11.1 Health Concerns Section Related Observation LastModified by Organization Detai ls LastModified Time None Recorded Concern Status LastModified by Organization Details LastModified Time None Recorded Advance Directives Directive N: Payers Insurance Date Sequence Insurance Name Policy Number Policy Torres Covered Member ID Torres Member ID Guarantor Name 10/22/2024 1 [place] [id number] 5 Torri Mejia [id number] Torri Mejia Notes Date Note Type Note Provider Name and Address Organization Details Recorded Time 4 text/htm l 48-year-old female who presents for follow-uparthritis, taking diclofenac therapy, controlled, needs refillHTN- taking medication as prescribed denies any chest pain, shortness of breath, swelling, blood pressure is controlledtaking thyroid medication as prescribed denies any hair loss constipationatorvastatin therapy for cholesterol denies any medication side effects except for possibly leg crampsrequest refill of albuterol, uses with her montelukast during seasonal changes /allergies TAVO HOLLINS NP [address] [place], [address], [facility] & [place] 01/28/2024 15:59:45 4 text/htm l 48-year-old female who presents to have her thyroidlevel recheck. Taking medication as prescribed 1st thing in the morning. also complains of congestion, cough, sore throat. Her daughter was recently diagnosed with flu and strep throat. Denies any lethargy, fever, chills, nausea, vomiting. TAVO HOLLINS NP [address] [facility], [place], [address], [facility] & [place] 02/26/2024 10:49:43 OBGyn Episode No OBEpisode recorded.
--- NOTE | 2025-05-14 13:30 | MM_ITS ---
PROCEDURE INFORMATION: Exam: MG Bilateral Screening 3D Mammography Exam date and time: 05/14/2025 1:09 PM Age: 49 years old Clinical indication: Screening mammogram TECHNIQUE: Imaging protocol: Bilateral Screening tomosynthesis and 2D mammography including computer-aided detection (CAD) when performed. COMPARISON: 1. MG MM DIG SCREENING MAMM BI W/CAD 04/23/2024 9:59 AM 2. MG MM DIG SCREENING MAMM BI W/CAD 03/20/2023 4:07 PM 3. MG MM DIG SCREENING MAMM BI W/CAD 03/06/2022 7:57 AM 4. MG MM DIG SCREENING MAMM BI W/CAD 02/28/2021 9:21 AM FINDINGS: MAMMOGRAPHY: Breast composition: The breast is heterogeneously dense, which may obscure small masses. Mass: None. Architectural distortion: No new or suspicious architectural distortion. Calcifications: No new or suspicious calcifications are present Asymmetric density: No new or suspicious asymmetric density is present Skin thickening: None. Axillary adenopathy: None. IMPRESSION: No mammographic evidence of malignancy. Recommend annual screening mammography unless otherwise clinically indicated. ASSESSMENT: BI-RADS category 1: Negative.
== END 2025-05-14 23:59 | disposition home or self-care (01) ==
LOC: RAD 13:06
PROVIDERS: PCP Physician Assistant; Visit Provider Obstetrics & Gynecology
DX: Z12.31 Encounter for screening mammogram for malignant neoplasm of breast (principal); R92.323 Mammographic fibroglandular density, bilateral breasts
CPT/HCPCS: 77063; 77067

== ENCOUNTER 2025-05-20 06:46 | Outpatient (CLI) | payer BC, SELFPAY ==
--- OUTSIDE RECORDS SUMMARY | 2025-05-20 06:49 | XMS_ITS | Continuity of Care Document ---
Author Organization [place] - [facility] Address [address] [place] [address] Assessment No assessment recorded. Plan of Treatment Reminders Order Date Submit Date Provider Last Modified By Organization Details Last Modified Time Details Appointments None recorded. Lab noninvasive colorectal cancer DNA + occult blood screening, QL, stool 2024 025 NEVADA Ghost (Cologuard Orders Only), [address], [place], [address], 5 07:52:13 Referral None recorded. Procedures None recorded. Surgeries None recorded. Imaging XR, lumbar spine 2024 025 [email or web address] 7 [facility], [address] [place] [address], [address], 5 13:29:09 Medication Orders omeprazole 40 mg capsule,del ayed release 2024 025 NEVADA [facility], [facility] [address], [facility] [address], [place], [phone], 5 14:01:30 amoxicillin 875 mg-potassiu m clavulanate 125 mg tablet 2024 025 [facility], [address] [place] [address], [address], 5 16:44:58 Patient TargetsNo targets recorded. Patient Instructions Encounter Date Encounter Id Patient Instructions Last Modified By Organization Details Last Modified Time 04/19/2025 [id number] Acute Sinusitis: Care Instructions [email or web address] Not available 04/19/2025 14:01:26 Reason for Referral None Reported. Results Created Date Observation Date Name Description Value Unit Range Abnormal Flag Note LastModifiedBy Organization Detail LastModifiedTime 04/19/20 25 XR, lumba r spine No observ ation record ed. [facility] - [address], [address], 04/19/2025 17:42:46 Result Notes None recorded. Problems Name Problem SNOMED Code Status Onset Date Resolution Date Notes Provider Name and Address Organization Details Recorded Time Pain of multiple joints 07105495 Active 2024 KAELA Hall [address] [place] [address], [address], [employer] 5 10:27:18 Constipatio n 48864472 Active 2024 KAELA Hall [address] [place] [address], [address], [employer] 5 10:27:05 Hypothyroid ism 19494027 Active 2024 KAELA Hall [address] [place] [address], [address], [employer] 5 10:27:16 Essential hypertensio n 00832031 Active 2024 KAELA Hall [address] [place] [address], [address], [employer] 5 10:27:08 Mild intermitten t asthma 342949658 Active 2024 KAELA Hall [address] [place] [address], [address], [employer] 5 10:27:14 Hyperlipide abdirahman 76895433 Active 2024 KAELA Hall [address] [place] [address], [address], [employer] 5 10:27:12 Pain in bilateral legs 0853289451809 9108 Active 2024 KAELA Hall [address] [place] [address], [address], [place] [employer] 5 11:26:01 Bilateral lower limb edema 467199993 Active 2024 KAELA Hall [address] [place] [address], [address], [place] [employer] 5 10:22:33 Hypercholes terolemia 60340634 Active Chayo Vice null, [employer] 5 13:31:13 Asthma 342140983 Active Chayo Vice null, [employer] 5 13:31:13 Lipedema 426265091 Active Chayo Vice null, [employer] 5 13:31:13 Hypertensiv e disorder 48246839 Active Chayo Vice null, [employer] 5 13:31:13 History of cholecystec lyle 110704206 Active Chayo Vice null, [employer] 5 13:31:13 Swelling of lower limb 169066426 Active Chayo Vice null, [employer] 5 13:31:13 Varicose veins of lower extremity 63378425 Active Chayo Vice null, [employer] 5 13:31:13 Acute maxillary sinusitis 71488177 Active 2024 KAELA Hall [address] [place] [address], [address], [place] [employer] 5 13:59:33 Gastroesoph ageal reflux disease without esophagitis 479135137 Active 2024 KAELA Hall [address] [place] [address], [address], [employer] 5 14:00:33 Lumbar radiculopat hy 961905440 Active 2024 KAELA Hall [address] [place] [address], [address], [employer] 5 14:07:38 Problem Notes None recorded. Procedures Surgical History Date Name Laterality Status Provider Name and Address Organization Details Recorded Time 4 Most Recent Mammogram completed [facility] [employer] [facility] [employer] 01/22/2025 11:02:21 Date of Last Pap Smear completed [facility] [employer] [facility] [employer] 01/22/2025 11:04:50 Colposcopy completed [facility] [employer] 12/29/2024 12:58:43 Gallbladder Surgery completed [facility] [employer] [facility] 12/29/2024 12:58:43 Imaging Results None recorded. Procedure [...] Last Updated DateTime 152.4 cm 32.7 kg/m2 49525.6 4 g 97 % 97 % 78 /min 98.1 [degF] 120 mm[Hg] 82 mm[Hg] [facility] [employer], [facility]. 13:35:04 Social History Question Answer Notes LastModified by Organizat ion Details LastModified Time Tobacco Smoking Status Former Smoker [facility] [employer], [employer]. 12/29/2024 12:58:43 Do You Have An Advance [...] Information not available 12/29/2024 What Type Of Fast Food Restaurant Manager Do You Use? None Information not available 12/29/2024 In The 14 Days Before Symptom Onset, Have You Had Close Contact With A Laboratory-confir med COVID-19 While That Case Was Ill? No [email or web address] Information not available 01/22/2025 In The 14 Days Before Symptom Onset, Have You Had Close Contact With A Person Who Is Under Investigation For COVID-19 While That Person Was Ill? No [email or web address] Information not available 01/22/2025 Have You Been To An Area Known To Be High Risk For COVID-19? No Information not available 12/29/2024 Are You Deaf Or Do You Have Serious Difficulty Hearing? No Information not available 12/29/2024 What Type Of Diet Are You Following? REGULAR Information not available 12/29/2024 Who Is Your Employer? [employer] Information not available 12/29/2024 How [...] Do You Have A Medical Power Of Landscape Drafter? No Information not available 12/29/2024 What Was [...] available 12/29/2024 What is your occupation? [employer] Information not available 12/29/2024 Do you have difficulty dressing or bathing? No Information not available 12/29/2024 What is your exercise level? Occasional Information not available 12/29/2024 Mental Status Question Answer Note LastModified by Organizat ion Details LastModified Time Do you feel stressed (tense, restless, nervous, or anxious, or unable to sleep at night)? [id number] Information not available 12/29/2024 Do you have [...] Medical History Condition Response Thyroid Problems Y Asthma Y High Cholesterol Y Hypertension Y Gynecological History Statement/Question Response [...] mL dose 12/14/2020 completed Chayo Vice null, [employer] 12/29/2024 12:58:53 COVID-19, mRNA, LNP-S, PF, 30 mcg/0.3 mL dose 01/03/2021 completed Chayo Vice null, [employer] 12/29/2024 12:58:53 Influenza, split virus, quadrivalent, PF 01/15/2023 completed Chayomaria g holguin, [employer] 12/29/2024 12:58:53 Past Encounters Encounter ID Performer Location Encounter Start Date Encounter Closed Date Diagnosis/Indication Diagnosis SNOMED-CT Code Diagnosis ICD10 Code Diagnosis Note [id number] KAELA Hall [facility] [address] [place] [address] 04/19/2025 13:15:11 04/19/2025 14:19:05 Screening for malignant neoplasm of colon 870136938 Z12.11 Acute maxi llary sinusitis 84895596 J01.00 Gastroesop hageal reflux disease without esophagitis 495286239 K21.9 Lumbar radiculopathy 128 338192 M54.16 May need MRI but Xray lumbar spine (has failed PT and chiro) Health Concerns Section Related Observation LastModified by Organization Detai ls LastModified Time None Recorded Concern Status LastModified by Organization Details LastModified Time None Recorded Payers Encounter Date Sequence Insurance Name Policy Number Policy Torres Covered Member ID Torres Member ID Guarantor Name 04/19/2025 1 [employer] ([place] [id number] 5 Torri Mejia [id number] Torri Mejia Notes Date Note Type [...] have $4000 for the surgery. KAELA Hall [address] [place] [address], [place], [address], [place] [facility] [employer] 04/19/2025 16:31:31 OBGyn Episode No OBEpisode recorded.
--- OUTSIDE RECORDS SUMMARY | 2025-05-20 06:49 | XMS_ITS | Data Portability ---
Author Organization [employer] [facility] Address [address] [place] [address] Assessment No assessment recorded. Plan of Treatment Reminders Order Date Submit Date Provider Last Modified By Organization Details Last Modified Time Details Appointments None recorded. Lab noninvasiv e colorectal cancer DNA + occult blood screening, QL, stool 2024 025 [facility] (Cologuard Orders Only), [address], [address], [place], [address], 5 07:52:13 SERGIO + rf (antinucle ar antibodies + rheumatoid factor), quantitati ve, serum 2024 025 [facility] [address] [place] [address], [address], 5 14:09:46 ESR (erythrocy te sedimentat ion rate), blood 2024 025 [facility] [address] [place] [address], [address], 5 14:09:48 C reactive protein, QN, serum or plasma 2024 025 [facility], [address] [place] [address], [address], 5 14:09:48 ccp (cyclic citrullina jennyfer peptide) iga+igg, serum 2024 025 [facility] [address] [place] [address] [place], [address], 5 14:09:47 CBC w/ auto diff [address] [facility]), [address] [place], [address], 5 14:09:44 CMP, serum or plasma [address] [facility]), [address] [place], [address], 5 14:09:44 TSH + free T4, serum [address] [facility]), [address] [place], [address], 5 14:09:43 vitamin D, 25-hydroxy , total, serum [address] [facility]), [address] [place], [address], 5 14:09:47 cobalamin and folate panel, serum [address] [facility]), [address] [place], [address], 5 14:09:45 lipid panel, serum [address] [facility]), [address] [place], [address], 5 14:09:45 Hepatitis C IgG Ab, qual, serum [address] [facility]), [address] [place] [address], [address], 5 14:09:46 HIV 1 + 2, meaningful use set [address] [facility]), [address] [place] [address], [address], 14:09:47 Referral cardiothor acic vascular surgeon referral - first available appt 2024 [place], [address] [place] [address], [place], [address], 09:06:00 Procedures None recorded. Surgeries None recorded. Imaging XR, lumbar spine [email or web address], [address] [place] [address], [address], 13:29:09 Medication Orders omeprazole 40 mg capsule,de layed release 2024 KRANTHI [facility], [address] [place] [address], [facility] [address], [place], [id number], 14:01:30 amoxicilli n 875 mg-potassi um clavulanat e 125 mg tablet 2024 [facility], [facility] [place], [address], 16:44:58 ketorolac 60 mg/2 mL intramuscu lar solution 2024 ice [facility], [address], [address], [place], [place], [id number], 5 13:36:37 Depo-Medro l 80 mg/mL suspension for injection 2024 025 [facility], [address], [address], [place], [place], [id number], 13:36:45 atorvastat in 10 mg tablet 2024 ATHENAFAX [facility], [address], [address], [place], [place], [id number], 5 14:20:35 Linzess 145 mcg capsule 2024 025 [email or web address] [facility], [address], [address], [place], [place], [id number], 5 14:12:30 hydrochlor othiazide 25 mg tablet 2024 025 ATHENAFAX [facility], [address], [address], [place], [place], [id number], 5 14:20:36 lisinopril 40 mg tablet 2024 025 ATHENAFAX [facility], [address], [address], [place], [place], [id number], 5 14:20:35 diclofenac sodium 75 mg tablet,del ayed release 2024 025 ATHENAFAX [facility], [address], [address], [place], [place], [id number], 5 14:20:34 albuterol sulfate HFA 90 mcg/actuat ion aerosol inhaler 2024 025 ATHENAFAX [facility], [address], [address], [place], [place], [id number], 5 14:20:36 montelukas t 10 mg tablet 2024 025 ATHENAFAX [facility], [address], [address], [place], [place], [id number], 5 14:20:36 levothyrox ine 88 mcg tablet 2024 025 [email or web address] [facility], [address], [address], [place], [place], [id number], 16:22:54 Patient TargetsNo targets recorded. Patient Instructions Encounter Date Encounter Id Patient Instructions Last Modified By Organization Details Last Modified Time 12/29/2024 [id number] high cholesterol : care instructions [email or web address] Not available 12/29/2024 14:15:05 constipation: care instructions [email or web address] Not available 12/29/2024 14:12:30 high blood pressure: care instructions Not available 12/29/2024 14:15:06 learning about high blood pressure [email or web address] Not available 12/29/2024 14:15:05 hypothyroidism: care instructions [email or web address] Not available 12/29/2024 14:15:05 04/19/2025 [id number] Acute Sinusitis: Care Instructions [email or web address] Not available 04/19/2025 14:01:26 Reason for Referral Cardiothoracic Vascular Surg star Referral for Pain in bilateral legs first available appt Referring Physician: Hazel Alvarenga, Family Medicine, Encounter Date: 01/22/2025 Results Created Date Observation Date Name Description Value Unit Range Abnormal Flag Note LastModifiedBy Organization Detail LastModifiedTime 12/29/1912/30/2024 TSH+F REE T4 TSH 9.670 uIU/m L 0.450- 4.500 above high normal Not Available [facility] ([facility]) [address] [place], [address], 12/30/2024 14:09:43 12/29/1912/30/2024 TSH+F REE T4 T4,free(dire ct) 1.44 NG/dL 0.82-1 .77 normal Not Available [facility] ([facility]) [address] [place], [address], 12/30/2024 14:09:43 12/29/19 25 12/30/2024 CBC WITH DIFFE RENTI AL/PL ATELE T WBC 8.5 x10e3 /uL 3.4-10 .8 normal Not Available [facility] ([facility]) [address] [place], [address], 12/30/2024 14:09:44 12/29/19 25 12/30/2024 CBC WITH DIFFE RENTI AL/PL ATELE T RBC 4.68 x10e6 /uL 3.77-5 .28 normal Not Available [facility] ([facility]) [address] [facility], [place], [address], 12/30/2024 14:09:44 12/29/1912/30/2024 CBC WITH DIFFE RENTI AL/PL ATELE T hemoglobin 14.8 g/dL 11.1-1 5.9 normal Not Available [facility] ([facility]) [address] [place], [address], 12/30/2024 14:09:44 12/29/1912/30/2024 CBC WITH DIFFE RENTI AL/PL ATELE T hematocrit 43.7 % 34.0-4 6.6 normal Not Available [facility] ([facility]) [address] [place], [address], 12/30/2024 14:09:44 12/29/1912/30/2024 CBC WITH DIFFE RENTI AL/PL ATELE T MCV 93 fL 79-97 normal Not Available [facility] ([facility]) [address] [place], [address], 12/30/2024 14:09:44 12/29/1912/30/2024 CBC WITH DIFFE RENTI AL/PL ATELE T MCH 31.6 pg 26.6-3 3.0 normal Not Available [facility] ([facility]) [address] [place], [address], 12/30/2024 14:09:44 12/29/19 25 12/30/2024 CBC WITH DIFFE RENTI AL/PL ATELE T MCHC 33.9 g/dL 31.5-3 5.7 normal Not Available [facility] ([facility]) [address] [place], [address], 12/30/2024 14:09:44 12/29/19 25 12/30/2024 CBC WITH DIFFE RENTI AL/PL ATELE T RDW 13.0 % 11.7-1 5.4 Not Available [facility] ([facility]) [address] [facility], [place], [address], 12/30/2024 14:09:44 12/29/19 25 12/30/2024 CBC WITH DIFFE RENTI AL/PL ATELE T platelets 287 x10e3 /uL 150-45 0 normal Not Available [facility] ([facility]) [address] [facility], [place], [address], 12/30/2024 14:09:44 12/29/19 25 12/30/2024 CBC WITH DIFFE RENTI AL/PL ATELE T neutrophils 58 % not estab. normal Not Available [facility] ([facility]) [address] [facility], [place], [address], 12/30/2024 14:09:44 12/29/19 25 12/30/2024 CBC WITH DIFFE RENTI AL/PL ATELE T lymphs 30 % not estab. normal Not Available [facility] ([facility]) [address] [facility], [place], [address], 12/30/2024 14:09:44 12/29/1912/30/2024 CBC WITH DIFFE RENTI AL/PL ATELE T monocytes 9 % not estab. normal Not Available [facility] ([facility]) [address] [facility], [place], [address], 12/30/2024 14:09:44 12/29/19 25 12/30/2024 CBC WITH DIFFE RENTI AL/PL ATELE T eos 2 % not estab. normal Not Available [facility] ([facility]) [address] [facility], [place], [address], 12/30/2024 14:09:44 12/29/19 25 12/30/2024 CBC WITH DIFFE RENTI AL/PL ATELE T basos 1 % not estab. normal Not Available [facility] ([facility]) [address] [place], [address], 12/30/2024 14:09:44 12/29/19 25 12/30/2024 CBC WITH DIFFE RENTI AL/PL ATELE T immature cells [employer] Not Available [facility] ([facility]) [address] [place], [address], 12/30/2024 14:09:44 12/29/1912/30/2024 CBC WITH DIFFE RENTI AL/PL ATELE T neutrophils (absolute) 5.0 x10e3 /uL 1.4-7. 0 normal Not Available [facility] ([facility]) [address] [place], [address], 12/30/2024 14:09:44 12/29/19 25 12/30/2024 CBC WITH DIFFE RENTI AL/PL ATELE T lymphs (absolute) 2.5 x10e3 /uL 0.7-3. 1 normal Not Available [facility] ([facility]) [address] [place], [address], 12/30/2024 14:09:44 12/29/19 25 12/30/2024 CBC WITH DIFFE RENTI AL/PL ATELE T monocytes(ab solute) 0.7 x10e3 /uL 0.1-0. 9 normal Not Available [facility] ([facility]) [address] [place], [address], 12/30/2024 14:09:44 12/29/1912/30/2024 CBC WITH DIFFE RENTI AL/PL ATELE T eos (absolute) 0.2 x10e3 /uL 0.0-0. 4 normal Not Available [facility] ([facility]) [address] [place], [address], 12/30/2024 14:09:44 12/29/19 25 12/30/2024 CBC WITH DIFFE RENTI AL/PL ATELE T baso (absolute) 0.1 x10e3 /uL 0.0-0. 2 normal Not Available [facility] ([facility]) [address] [facility], [place], [address], 12/30/2024 14:09:44 12/29/19 25 12/30/2024 CBC WITH DIFFE RENTI AL/PL ATELE T immature granulocytes 0 % not estab. Not Available [facility] ([facility]) [address] [facility], [place], [address], 12/30/2024 14:09:44 12/29/19 25 12/30/2024 CBC WITH DIFFE RENTI AL/PL ATELE T immature grans (abs) 0.0 x10e3 /uL 0.0-0. 1 Not Available [facility] ([facility]) [address] [facility], [place], [address], 12/30/2024 14:09:44 12/29/19 25 12/30/2024 CBC WITH DIFFE RENTI AL/PL ATELE T NRBC [employer] Not Available [facility] ([facility]) [address] [facility], [place], [address], 12/30/2024 14:09:44 12/29/19 25 12/30/2024 CBC WITH DIFFE RENTI AL/PL ATELE T hematology comments: [employer] Not Available [facility] ([facility]) [address] [facility], [place], [address], 12/30/2024 14:09:44 12/29/19 25 12/30/2024 COMP. METAB OLIC PANEL (14) glucose 91 mg/dL 70-99 normal Not Available [facility] ([facility]) [address] [facility], [place], [address], 12/30/2024 14:09:44 12/29/19 25 12/30/2024 COMP. METAB OLIC PANEL (14) BUN 20 mg/dL 6-24 normal Not Available [facility] ([facility]) [address] [facility] [place], [address], 12/30/2024 14:09:44 12/29/19 25 12/30/2024 COMP. METAB OLIC PANEL (14) creatinine 0.84 mg/dL 0.57-1 .00 normal Not Available [facility] ([facility]) [address] [facility] [place], [address], 12/30/2024 14:09:44 12/29/19 25 12/30/2024 COMP. METAB OLIC PANEL (14) eGFR 86 mL/mi n/1.7 3 >59 normal Not Available [facility] ([facility]) [address] [facility] [place], [address], 12/30/2024 14:09:44 12/29/19 25 12/30/2024 COMP. METAB OLIC PANEL (14) BUN/creatini ne ratio 24 9-23 above high normal Not Available [facility] ([facility]) [address] [facility] [place], [address], 12/30/2024 14:09:44 12/29/19 25 12/30/2024 COMP. METAB OLIC PANEL (14) sodium 136 mmol/ L 134-14 4 normal Not Available [facility] ([facility]) [address] [place], [address], 12/30/2024 14:09:44 12/29/19 25 12/30/2024 COMP. METAB OLIC PANEL (14) potassium 3.9 mmol/ L 3.5-5. 2 normal Not Available [facility] ([facility]) [address] [place], [address], 12/30/2024 14:09:44 12/29/19 25 12/30/2024 COMP. METAB OLIC PANEL (14) chloride 99 mmol/ L 96-106 normal Not Available [facility] ([facility]) [address] [place], [address], 12/30/2024 14:09:44 12/29/19 25 12/30/2024 COMP. METAB OLIC PANEL (14) carbon dioxide, total 19 mmol/ L 20-29 below low normal Not Available [facility] ([facility]) [address] [place], [address], 12/30/2024 14:09:44 12/29/19 25 12/30/2024 COMP. METAB OLIC PANEL (14) calcium 9.7 mg/dL 8.7-10 .2 normal Not Available [facility] ([facility]) [address] [place], [address], 12/30/2024 14:09:44 12/29/19 25 12/30/2024 COMP. METAB OLIC PANEL (14) protein, total 7.8 g/dL 6.0-8. 5 normal Not Available [facility] ([facility]) [address] [place], [address], 12/30/2024 14:09:44 12/29/19 25 12/30/2024 COMP. METAB OLIC PANEL (14) albumin 4.8 g/dL 3.9-4. 9 normal Not Available [facility] ([facility]) [address] [place], [address], 12/30/2024 14:09:44 12/29/19 25 12/30/2024 COMP. METAB OLIC PANEL (14) globulin, total 3.0 g/dL 1.5-4. 5 Not Available [facility] ([facility]) [address] [place], [address], 12/30/2024 14:09:44 12/29/19 25 12/30/2024 COMP. METAB OLIC PANEL (14) bilirubin, total 0.7 mg/dL 0.0-1. 2 normal Not Available [facility] ([facility]) [address] [place], [address], 12/30/2024 14:09:44 12/29/19 25 12/30/2024 COMP. METAB OLIC PANEL (14) alkaline phosphatase 72 IU/L 44-121 normal Not Available [facility] ([facility]) [address] [place], [address], 12/30/2024 14:09:44 12/29/19 25 12/30/2024 COMP. METAB OLIC PANEL (14) AST (SGOT) 18 IU/L 0-40 normal Not Available [facility] ([facility]) [address] [place], [address], 12/30/2024 14:09:44 12/29/19 25 12/30/2024 COMP. METAB OLIC PANEL (14) ALT (SGPT) 13 IU/L 0-32 normal Not Available [facility] ([facility]) [address] [place], [address], 12/30/2024 14:09:44 12/29/19 25 12/30/2024 LIPID PANEL cholesterol, total 154 mg/dL 100-19 9 normal Not Available [facility] ([facility]) [address] [place], [address], 12/30/2024 14:09:45 12/29/19 25 12/30/2024 LIPID PANEL triglyceride s 250 mg/dL 0-149 above high normal Not Available [facility] ([facility]) [address] [facility] [place], [address], 12/30/2024 14:09:45 12/29/19 25 12/30/2024 LIPID PANEL HDL cholesterol 45 mg/dL >39 normal Not Available [facility] ([facility]) [address] [place], [address], 12/30/2024 14:09:45 12/29/19 25 12/30/2024 LIPID PANEL VLDL cholesterol opal 40 mg/dL 5-40 Not Available [facility] ([facility]) [address] [place], [address], 12/30/2024 14:09:45 12/29/19 25 12/30/2024 LIPID PANEL LDL chol calc ([facility]) 69 mg/dL 0-99 Not Available [facility] ([facility]) [address] [facility], [place], [address], 12/30/2024 14:09:45 12/29/19 25 12/30/2024 LIPID PANEL LDL calc comment: [employer] Not Available [facility] ([facility]) [address] [facility], [place], [address], 12/30/2024 14:09:45 12/29/19 25 12/30/2024 VITAM IN B12 AND FOLAT E vitamin B12 446 pg/mL 232-12 45 normal Not Available [facility] ([facility]) [address] [place], [address], 12/30/2024 14:09:45 12/29/1912/30/2024 VITAM IN B12 AND FOLAT E folate (folic acid), serum 16.0 NG/mL >3.0 normal A serum folat e elvin ntrat ion of less than 3.1 ng/mL is consi dered to repre sent clini opal defic iency . Not Available [facility] ([facility]) [address] [facility], [place], [address], 12/30/2024 14:09:45 12/29/1912/30/2024 SERGIO+R F QN SERGIO direct Negati ve negati ve Not Available [facility] ([facility]) [address] [facility], [place], [address], 12/30/2024 14:09:46 12/29/19 25 12/30/2024 SERGIO+R F QN rheumatoid factor (rf) <10.0 IU/mL <14.0 Not Available [facility] ([facility]) [address] [facility], [place], [address], 12/30/2024 14:09:46 12/29/19 25 12/30/2024 HCV ANTIB KAREEM CASCA DE(PC R/GEN O) HCV Ab Non Reacti ve non reacti ve Not Available [facility] ([facility]) [address] [facility], [place], [address], 12/30/2024 14:09:46 12/29/19 25 12/30/2024 HCV ANTIB KAREEM CASCA DE(PC R/GEN O) interpretati on: Commen t Not infec jennyfer with HCV unles s early or acute infec tion is suspe cted (whic h may be delay ed in an immun ocomp romis ed indiv idual ), or other evide nce exist s to indic ate HCV infec tion. Not Available [facility] ([facility]) [address] [facility], [place], [address], 12/30/2024 14:09:46 12/29/1912/30/2024 VITAM IN D, 25-HY DROXY vitamin D, 25-hydroxy 41.3 NG/mL 30.0-1 00.0 Vitam in D defic iency has been defin ed by the Insti tute of Medic ine and an Endoc rine Socie ty pract ice guide line as a level of serum 25-OH vitam in D less than 20 ng/mL (1,2) . The Endoc rine Socie ty went on to furth er defin e vitam in D insuf ficie ncy as a level betwe en 21 and 29 ng/mL (2). 1. IOM (Inst itute of Medic ine). 2010. Dieta ry refer ence intak es for calci um and D. Doyle garcía [place]: The Natio nal [facility] Press . 2. Norris pimentel [place], Shiv ey [place], Gifty off-F errar i AYOUB, et al. Evalu ation , treat ment, and preve ntion of vitam in D defic iency : an Endoc rine Socie ty clini opal pract ice guide line. JCEM. 2010; 96(7) :1911 -30. Not Available [facility] ([facility]) [address] [place], [address], 12/30/2024 14:09:46 12/29/19 25 12/30/2024 HIV AB/P2 4 AG WITH REFLE X HIV Ab/P24 Ag screen Non Reacti ve non reacti ve HIV-1 /HIV- 2 antib odies and HIV-1 p24 antig en were NOT detec jennyfer. There is no labor atory evide nce of HIV infec tion. HIV Negat cole Not Available [facility] ([facility]) [address] [facility], [place], [address], 12/30/2024 14:09:47 12/29/19 25 12/30/2024 ANTI- CCP AB, IGG/I GA anti-ccp Ab, IgG/IgA 3 units 0-19 Negat cole <20 Weak posit cole 20 - 39 Moder ate posit cole 40 - 59 Stron g posit cole >59 Not Available [facility] ([facility]) [address] [place], [address], 12/30/2024 14:09:47 12/29/19 25 12/30/2024 SEDIM ENTAT ION RATE- WESTE RGREN sedimentatio n rate-westerg abdirizak 18 mm/HR 0-32 normal Not Available [facility] ([facility]) [address] [place], [address], 12/30/2024 14:09:48 12/29/19 25 12/30/2024 C-CARLOS CTIVE PROTE IN, QUANT C-reactive protein, quant 3 mg/L 0-10 normal Not Available [facility] ([facility]) [address] [place], [address], 12/30/2024 14:09:48 01/22/20 25 04/23/2024 MAMMO , scree rebekah, bilat eral No observ ation record ed. Not Available 2024 12:03:06 04/19/20 25 XR, lumba r spine No observ ation record ed. [address], [place], [address], 04/19/2025 17:42:46 Result Notes None recorded. Problems Name Problem SNOMED Code Status Onset Date Resolution Date Notes Provider Name and Address Organization Details Recorded Time Pain of multiple joints 34006486 Active 2024 KAELA Hall [address] [place] [address], [address], [employer] 10:27:18 Constipatio n 10684788 Active 2024 KAELA Hall [address] [place] [address], [address] 8, [employer] 10:27:05 Hypothyroid ism 01100532 Active 2024 KAELA Hall [address] [place] [address], [address] 8, [employer] 10:27:16 Essential hypertensio n 07630391 Active 2024 KAELA Hall [address] [place] [address], [address] 8, [employer] 10:27:08 Mild intermitten t asthma 494717673 Active 2024 KAELA Hall [address] [place] [address], [address] 8, [employer] 10:27:14 Hyperlipide abdirahman 52242796 Active 2024 KAELA Hall [address] [place] [address], [address] 8, [employer] 5 10:27:12 Pain in bilateral legs 8206025127893 9108 Active 2024 KAELA Hall [address] [place] [address], [address] 8, [employer] 5 11:26:01 Bilateral lower limb edema 847449621 Active 2024 KAELA Hall [address] [place] [address], [address] 8, [employer] 5 10:22:33 Hypercholes terolemia 15808953 Active Chayo Vice null, [employer] 5 13:31:13 Asthma 451272385 Active Chayo Vice null, [employer] 13:31:13 Lipedema 072179059 Active Chayo Vice null, [employer] 13:31:13 Hypertensiv e disorder 15428157 Active Chayo Vice null, [employer] 5 13:31:13 History of cholecystec lyle 894924365 Active Chayo Vice null, [employer] 5 13:31:13 Swelling of lower limb 431381554 Active Chayo Vice null, [employer] 5 13:31:13 Varicose veins of lower extremity 70010545 Active Chayo Vice null, [employer] 5 13:31:13 Acute maxillary sinusitis 17033349 Active 2024 KAELA Hall [address] [place] [address], 430[address]737 8, [employer] 5 13:59:33 Gastroesoph ageal reflux disease without esophagitis 447150053 Active 2024 KAELA Hall [address] [place] [address], [address] 8, [employer] 5 14:00:33 Lumbar radiculopat hy 013652520 Active 2024 KAELA Hall [address] [place] [address], 39[address] 8, [employer] 5 14:07:38 Problem Notes None recorded. Procedures Surgical History Date Name Laterality Status Provider Name and Address Organization Details Recorded Time 4 Most Recent Mammogram completed [facility]. 01/22/2025 11:02:21 4 Date of Last Pap Smear completed [facility]. 01/22/2025 11:04:50 Colposcopy completed ChayoZaranga [facility] [employer] 12/29/2024 12:58:43 Gallbladder Surgery completed Hongdianzhibo [employer] 12/29/2024 12:58:43 Imaging Results None recorded. Procedure [...] e Not Available Vitals Date Recorded Body weight Body mass index (BMI) Body height Body temperature Heart rate Oxygen saturation Oxygen saturation in Arterial blood by Pulse oximetry Systolic blood pressure Diastolic blood pressure Provider Name and Address Organization Details Last Updated DateTime 5 62365.9 2 g 33.9 kg/m2 152.4 cm 98.3 [degF] 84 /min 98 % 98 % 138 mm[Hg] 80 mm[Hg] [facility] 5 13:05:33 Date Recorded Body height Body mass index (BMI) Body weight Body temperature Heart rate Oxygen saturation Oxygen saturation in Arterial blood by Pulse oximetry Systolic blood pressure Diastolic blood pressure Provider Name and Address Organization Details Last Updated DateTime 5 152.4 cm 33.7 kg/m2 32963.9 9 g 98 [degF] 73 /min 97 % 97 % 112 mm[Hg] 78 mm[Hg] Laurie Levine [employer] 5 10:53:08 Date Recorded Body height Body mass index (BMI) Body weight Oxygen saturation Oxygen saturation in Arterial blood by Pulse oximetry Heart rate Body temperature Systolic blood pressure Diastolic blood pressure Provider Name and Address Organization Details Last Updated DateTime 5 152.4 cm 32.7 kg/m2 60503.6 4 g 97 % 97 % 78 /min 98.1 [degF] 120 mm[Hg] 82 mm[Hg] [employer] 5 13:35:04 Social History Question Answer Notes LastModified by Organizat ion Details LastModified Time Tobacco Smoking Status Former Smoker [employer] 12/29/2024 12:58:43 Do You Have An Advance [...] Information not available 12/29/2024 What Type Of Workers Compensation Legal Secretary Do You Use? None Information not available 12/29/2024 In The 14 Days Before Symptom Onset, Have You Had Close Contact With A Laboratory-confir med COVID-19 While That Case Was Ill? No [email or web address] Information not available 01/22/2025 In The 14 Days Before Symptom Onset, Have You Had Close Contact With A Person Who Is Under Investigation For COVID-19 While That Person Was Ill? No [email or web address] Information not available 01/22/2025 Have You Been To An Area Known To Be High Risk For COVID-19? No Information not available 12/29/2024 Are You Deaf Or Do You Have Serious Difficulty Hearing? No Information not available 12/29/2024 What Type Of Diet Are You Following? REGULAR Information not available 12/29/2024 Who Is Your Employer? [employer] Information not available 12/29/2024 How [...] Do You Have A Medical Power Of Correctional Treatment Specialist? No Information not available 12/29/2024 What Was [...] available 12/29/2024 What is your occupation? [employer] Information not available 12/29/2024 Do you have difficulty dressing or bathing? No Information not available 12/29/2024 What is your exercise level? Occasional Information not available 12/29/2024 Mental Status Question Answer Note LastModified by Organizat ion Details LastModified Time Do you feel stressed (tense, restless, nervous, or anxious, or unable to sleep at night)? [id number] Information not available 12/29/2024 Do you have [...] mL dose 12/14/2020 completed Chayo Vice null, [employer] 12/29/2024 12:58:53 COVID-19, mRNA, LNP-S, PF, 30 mcg/0.3 mL dose 01/03/2021 completed [employer]ayo Vice null, [employer] 12/29/2024 12:58:53 Influenza, split virus, quadrivalent, PF 01/15/2023 completed Chayo Vice null, [employer] 12/29/2024 12:58:53 Past Encounters Encounter ID Performer Location Encounter Start Date Encounter Closed Date Diagnosis/Indication Diagnosis SNOMED-CT Code Diagnosis ICD10 Code Diagnosis Note [id number] KAELA [facility] [address] [address] 12/29/2024 12:36:47 12/29/2024 13:56:08 Pain of multiple joints 04712649 M25.50 Constipation 73596404 K5 9.00 HIV screening 348819450 Z11.4 Hepatitis C screening 41 0058636 Z11.59 Hypothyroidism 88783984 E03.9 Essential hypertension 45166165 I10 Mild inter mittent asthma 570866680 J45.20 Hyperlipidemia 49919230 E78.5 [id number] KAELA [facility] [address] [place] [address] 01/22/2025 10:46:20 01/22/2025 11:26:16 Pain in bilateral legs 5178046894 4395780 M79.605 M79.604 Bilateral lower limb edema 734345540 R60.0 [id number] KAEL[facility] [address] [place] [address] 04/19/2025 13:15:11 04/19/2025 14:19:05 Screening for malignant neoplasm of colon 751995435 Z12.11 Acute maxi llary sinusitis 09961489 J01.00 Gastroesop hageal reflux disease without esophagitis 992627759 K21.9 Lumbar radiculopathy 128 926114 M54.16 May need MRI but Xray lumbar spine (has failed PT and chiro) Health Concerns Section Related Observation LastModified by Organization Detai ls LastModified Time None Recorded Concern Status LastModified by Organization Details LastModified Time None Recorded Advance Directives Directive N: Payers Insurance Date Sequence Insurance Name Policy Number Policy Torres Covered Member ID Torres Member ID Guarantor Name 04/17/2025 1 [employer] [place] ([place] [id number] Torri Mejia [id number] Torri Mejia Notes Date Note Type Note Provider Name and Address Organization Details Recorded Time 12/29/2024 text/html Patient presents to establish care.History of hypothyroidism, HLD, HTN, asthmaHas had pain and swelling in her ankles for several years. No relief with water pill. Seen by cardiology - heart cleared. Had labs and had a speckled SERGIO but no one followed it up further. Pain becoming unbearable. Mother has RA.Also c/o constipation & bloating. Has to use enema, mag citrate at times. Pain radiates down her legs when she can't use the restroom. KAELA [facility] [address] [place], [phone], [facility] [employer] 12/31/2024 12:15:00 01/22/2025 text/html Patient states that she is still having pain and swelling in her feet and ankles. Had normal labs, normal cardiac workup in the past. ECHO denied by insurance. Has tried compression stockings, elevation, avoiding salt, diuretics. Nothing has seemed to help and perhaps even made it worse. Now has pain that radiates down her entire leg at times. It is affecting her ability to work. KAELA Hall [address] [place], [phone], [place] [employer] 01/26/2025 10:23:48 04/19/2025 text/html Patient presents for followup.Sinus pain [...] have $4000 for the surgery. KAELA Hall [address] [place] [address], [phone], [employer] 04/19/2025 16:31:31 OBGyn Episode No OBEpisode recorded.
--- OUTSIDE RECORDS SUMMARY | 2025-05-20 06:49 | XMS_ITS | Data Portability ---
Author Organization [place] - [facility] - [place] [facility] [place] ORIN ADMIN Address [address] [place] [address] Care Team Providers Care Slotter Operator Helper Name Role Phone TAVO HOLLINS Primary Care Provider [phone] Assessment Encounter Date Assessment Date Assessment LastModified by Organization Details LastModified Time 01/29/2024 01/29/2024 Blood drawn in Right AC by ALISTAIR Carrero, patient tolerated well [email or web address] Not available 01/29/2024 12:51:18 02/26/2024 02/26/2024 Blood drawn in Left AC by ALISTAIR Carrero, patient tolerated well [email or web address] Not available 02/26/2024 10:33:10 Plan of Treatment Reminders Order Date Submit Date Provider Last Modified By Organization Details Last Modified Time Details Appointments None recorded. Lab Mycobacter ium tuberculos is stimulated gamma interferon , qual, blood 2023 024 [facility], [address] [place], [address], 4 16:10:28 TSH + free T4, serum 2023 024 [facility], [address] [place], [address], 4 09:37:58 rapid strep group A, throat 2023 024 [facility], [address] [place], [address], 4 11:03:17 influenza virus A + B + SARS-CoV-2 (COVID19) Ag panel, rapid IA, upper respirator y specimen [address] [facility], [address] [place], [address], 4 11:03:17 TSH + free T4, serum 2023 024 [facility], [address] [place] [address], [address], 4 07:15:28 magnesium, serum or plasma 2023 024 [facility], [address] [place] [address], [address], 4 08:22:29 vitamin B12 + folate, serum or blood 2023 024 [facility], [address] [place] [address], [address], 4 08:22:28 CMP, serum or plasma 2023 024 [facility], [address] [place] [address], [address], 4 08:22:26 CBC w/ auto diff 2023 024 [facility], [address] [place] [address], [address], 4 08:22:25 TSH + free T4, serum 2023 024 [facility], [address] [place] [address], [address], 4 08:22:24 lipid panel, serum 2023 024 [facility], [address] [place] [address], [address], 4 08:22:27 Referral None recorded. Procedures None recorded. Surgeries None recorded. Imaging None recorded. Medication Orders cephalexin 500 mg capsule 2023 [id number], [address] [place], [id number], 4 10:48:06 diclofenac sodium 75 mg tablet,del ayed release 2023 [facility][id number], [address] [place], [id number], 4 15:54:55 albuterol sulfate HFA 90 mcg/actuat ion aerosol inhaler 2023 024 [facility] #[id number], [address] [place], [id number], 4 15:54:54 Patient TargetsNo targets recorded. Patient InstructionsNo instructions recorded. Reason for Referral None Reported. Results Created Date Observation Date Name Description Value Unit Range Abnormal Flag Note LastModifiedBy Organization Detail LastModifiedTime 01/29/2001/30/2024 TSH+F REE T4 TSH 0.029 uIU/m L 0.450- 4.500 below low normal Not Available [facility] ([facility]) [address] [place], [address], 01/30/2024 08:22:24 01/29/2001/30/2024 TSH+F REE T4 T4,free(dire ct) 2.54 NG/dL 0.82-1 .77 above high normal Not Available [facility] ([facility]) [address] [place], [address], 01/30/2024 08:22:24 01/29/20 24 01/30/2024 CBC WITH DIFFE RENTI AL/PL ATELE T WBC 7.2 x10e3 /uL 3.4-10 .8 Not Available [facility] ([facility]) [address] [place], [address], 01/30/2024 08:22:25 01/29/20 24 01/30/2024 CBC WITH DIFFE RENTI AL/PL ATELE T RBC 4.28 x10e6 /uL 3.77-5 .28 Not Available [facility] ([facility]) [address] [facility], [place], [address], 01/30/2024 08:22:25 01/29/20 24 01/30/2024 CBC WITH DIFFE RENTI AL/PL ATELE T hemoglobin 13.6 g/dL 11.1-1 5.9 Not Available [facility] ([facility]) [address] [facility], [place], [address], 01/30/2024 08:22:25 01/29/20 24 01/30/2024 CBC WITH DIFFE RENTI AL/PL ATELE T hematocrit 39.7 % 34.0-4 6.6 Not Available [facility] ([facility]) [address] [facility], [place], [address], 01/30/2024 08:22:25 01/29/20 24 01/30/2024 CBC WITH DIFFE RENTI AL/PL ATELE T MCV 93 fL 79-97 Not Available [facility] ([facility]) [address] [place], [address], 01/30/2024 08:22:25 01/29/20 24 01/30/2024 CBC WITH DIFFE RENTI AL/PL ATELE T MCH 31.8 pg 26.6-3 3.0 Not Available [facility] ([facility]) [address] [place], [address], 01/30/2024 08:22:25 01/29/20 24 01/30/2024 CBC WITH DIFFE RENTI AL/PL ATELE T MCHC 34.3 g/dL 31.5-3 5.7 Not Available [facility] ([facility]) [address] [place], [address], 01/30/2024 08:22:25 01/29/20 24 01/30/2024 CBC WITH DIFFE RENTI AL/PL ATELE T RDW 12.1 % 11.7-1 5.4 Not Available [facility] ([facility]) [address] [facility], [place], [address], 01/30/2024 08:22:25 01/29/20 24 01/30/2024 CBC WITH DIFFE RENTI AL/PL ATELE T platelets 317 x10e3 /uL 150-45 0 Not Available [facility] ([facility]) [address] [facility], [place], [address], 01/30/2024 08:22:25 01/29/20 24 01/30/2024 CBC WITH DIFFE RENTI AL/PL ATELE T neutrophils 49 % not estab. Not Available [facility] ([facility]) [address] [facility], [place], [address], 01/30/2024 08:22:25 01/29/20 24 01/30/2024 CBC WITH DIFFE RENTI AL/PL ATELE T lymphs 36 % not estab. Not Available [facility] ([facility]) [address] [facility], [place], [address], 01/30/2024 08:22:25 01/29/20 24 01/30/2024 CBC WITH DIFFE RENTI AL/PL ATELE T monocytes 9 % not estab. Not Available [facility] ([facility]) [address] [facility], [place], [address], 01/30/2024 08:22:25 01/29/20 24 01/30/2024 CBC WITH DIFFE RENTI AL/PL ATELE T eos 5 % not estab. Not Available [facility] ([facility]) [address] [facility], [place], [address], 01/30/2024 08:22:25 01/29/20 24 01/30/2024 CBC WITH DIFFE RENTI AL/PL ATELE T basos 1 % not estab. Not Available [facility] ([facility]) [address] [place], [address], 01/30/2024 08:22:25 01/29/20 24 01/30/2024 CBC WITH DIFFE RENTI AL/PL ATELE T immature cells IRRIGATION ENGINEER Not Available [facility] [address] [facility], [place], [address], 01/30/2024 08:22:25 01/29/20 24 01/30/2024 CBC WITH DIFFE RENTI AL/PL ATELE T neutrophils (absolute) 3.5 x10e3 /uL 1.4-7. 0 Not Available [facility] ([facility]) [address] [facility], [place], [address], 01/30/2024 08:22:25 01/29/20 24 01/30/2024 CBC WITH DIFFE RENTI AL/PL ATELE T lymphs (absolute) 2.6 x10e3 /uL 0.7-3. 1 Not Available [facility] ([facility]) [address] [place], [address], 01/30/2024 08:22:25 01/29/20 24 01/30/2024 CBC WITH DIFFE RENTI AL/PL ATELE T monocytes(ab solute) 0.7 x10e3 /uL 0.1-0. 9 Not Available [facility] ([facility]) [address] [place], [address], 01/30/2024 08:22:25 01/29/20 24 01/30/2024 CBC WITH DIFFE RENTI AL/PL ATELE T eos (absolute) 0.3 x10e3 /uL 0.0-0. 4 Not Available [facility] ([facility]) [address] [place], [address], 01/30/2024 08:22:25 01/29/20 24 01/30/2024 CBC WITH DIFFE RENTI AL/PL ATELE T baso (absolute) 0.1 x10e3 /uL 0.0-0. 2 Not Available [facility] ([facility]) [address] [facility], [place], [address], 01/30/2024 08:22:25 01/29/20 24 01/30/2024 CBC WITH DIFFE RENTI AL/PL ATELE T immature granulocytes 0 % not estab. Not Available [facility] ([facility]) [address] [facility], [place], [address], 01/30/2024 08:22:25 01/29/20 24 01/30/2024 CBC WITH DIFFE RENTI AL/PL ATELE T immature grans (abs) 0.0 x10e3 /uL 0.0-0. 1 Not Available [facility] ([facility]) [address] [facility], [place], [address], 01/30/2024 08:22:25 01/29/20 24 01/30/2024 CBC WITH DIFFE RENTI AL/PL ATELE T NRBC IRRIGATION ENGINEER Not Available [facility] ([facility]) [address] [facility], [place], [address], 01/30/2024 08:22:25 01/29/20 24 01/30/2024 CBC WITH DIFFE RENTI AL/PL ATELE T hematology comments: IRRIGATION ENGINEER Not Available [facility] ([facility]) [address] [place], [address], 01/30/2024 08:22:25 01/29/20 24 01/30/2024 COMP. METAB OLIC PANEL (14) glucose 90 mg/dL 70-99 Not Available [facility] ([facility]) [address] [place], [address], 01/30/2024 08:22:26 01/29/20 24 01/30/2024 COMP. METAB OLIC PANEL (14) BUN 28 mg/dL 6-24 above high normal Not Available [facility] ([facility]) [address] [place], [address], 01/30/2024 08:22:26 01/29/20 24 01/30/2024 COMP. METAB OLIC PANEL (14) creatinine 1.14 mg/dL 0.57-1 .00 above high normal Not Available [facility] ([facility]) [address] [facility] [place], [address], 01/30/2024 08:22:26 01/29/20 24 01/30/2024 COMP. METAB OLIC PANEL (14) eGFR 60 mL/mi n/1.7 3 >59 Not Available [facility] ([facility]) [address] [facility] [place], [address], 01/30/2024 08:22:26 01/29/20 24 01/30/2024 COMP. METAB OLIC PANEL (14) BUN/creatini ne ratio 25 9-23 above high normal Not Available [facility] ([facility]) [address] [facility] [place], [address], 01/30/2024 08:22:26 01/29/20 24 01/30/2024 COMP. METAB OLIC PANEL (14) sodium 139 mmol/ L 134-14 4 Not Available [facility] ([facility]) [address] [facility] [place], [address], 01/30/2024 08:22:26 01/29/20 24 01/30/2024 COMP. METAB OLIC PANEL (14) potassium 4.3 mmol/ L 3.5-5. 2 Not Available [facility] ([facility]) [address] [facility] [place], [address], 01/30/2024 08:22:26 01/29/20 24 01/30/2024 COMP. METAB OLIC PANEL (14) chloride 100 mmol/ L 96-106 Not Available [facility] ([facility]) [address] [facility], [place], [address], 01/30/2024 08:22:26 01/29/20 24 01/30/2024 COMP. METAB OLIC PANEL (14) carbon dioxide, total 23 mmol/ L Not Available [facility] ([facility]) [address] [place], [address], 01/30/2024 08:22:26 01/29/20 24 01/30/2024 COMP. METAB OLIC PANEL (14) calcium 9.7 mg/dL 8.7-10 .2 Not Available [facility] ([facility]) [address] [place], [address], 01/30/2024 08:22:26 01/29/20 24 01/30/2024 COMP. METAB OLIC PANEL (14) protein, total 7.4 g/dL 6.0-8. 5 Not Available [facility] ([facility]) [address] [place], [address], 01/30/2024 08:22:26 01/29/20 24 01/30/2024 COMP. METAB OLIC PANEL (14) albumin 4.5 g/dL 3.9-4. 9 Not Available [facility] ([facility]) [address] [place], [address], 01/30/2024 08:22:26 01/29/20 24 01/30/2024 COMP. METAB OLIC PANEL (14) globulin, total 2.9 g/dL 1.5-4. 5 Not Available [facility] ([facility]) [address] [place], [address], 01/30/2024 08:22:26 01/29/20 24 01/30/2024 COMP. METAB OLIC PANEL (14) A/G ratio 1.6 1.2-2. 2 Not Available [facility] ([facility]) [address] [place], [address], 01/30/2024 08:22:26 01/29/20 24 01/30/2024 COMP. METAB OLIC PANEL (14) bilirubin, total 0.7 mg/dL 0.0-1. 2 Not Available [facility] ([facility]) [address] [place], [address], 01/30/2024 08:22:26 01/29/20 24 01/30/2024 COMP. METAB OLIC PANEL (14) alkaline phosphatase 89 IU/L 44-121 Not Available [facility]) [address] [place], [address], 01/30/2024 08:22:26 01/29/20 24 01/30/2024 COMP. METAB OLIC PANEL (14) AST (SGOT) 22 IU/L 0-40 Not Available [facility] ([facility]) [address] [place], [address], 01/30/2024 08:22:26 01/29/20 24 01/30/2024 COMP. METAB OLIC PANEL (14) ALT (SGPT) 29 IU/L 0-32 Not Available [facility] ([facility]) [address] [place], [address], 01/30/2024 08:22:26 01/29/20 24 01/30/2024 LIPID PANEL cholesterol, total 161 mg/dL 100-19 9 Not Available [facility] ([facility]) [address] [place], [address], 01/30/2024 08:22:27 01/29/20 24 01/30/2024 LIPID PANEL triglyceride s 165 mg/dL 0-149 above high normal Not Available [facility] ([facility]) [address] [place], [address], 01/30/2024 08:22:27 01/29/20 24 01/30/2024 LIPID PANEL HDL cholesterol 46 mg/dL >39 Not Available [facility] [address] [place], [address], 01/30/2024 08:22:27 01/29/20 24 01/30/2024 LIPID PANEL VLDL cholesterol opal 28 mg/dL 5-40 Not Available [facility]) [address] [place], [address], 01/30/2024 08:22:27 01/29/20 24 01/30/2024 LIPID PANEL LDL chol calc ([facility]) 87 mg/dL 0-99 Not Available [facility] [address] [place], [address], 01/30/2024 08:22:27 01/29/20 24 01/30/2024 LIPID PANEL comment: IRRIGATION ENGINEER Not Available [facility] ([facility]) [address] [facility] [place], [address], 01/30/2024 08:22:27 01/29/20 24 01/30/2024 VITAM IN B12 AND FOLAT E vitamin B12 526 pg/mL 232-12 45 Not Available [facility] ([facility]) [address] [facility] [place], [address], 01/30/2024 08:22:28 01/29/20 24 01/30/2024 VITAM IN B12 AND FOLAT E folate (folic acid), serum 17.3 NG/mL >3.0 A serum folat e elvin ntrat ion of less than 3.1 ng/mL is consi dered to repre sent clini opal defic iency . Not Available [facility] ([facility]) [address] [facility] [place], [address], 01/30/2024 08:22:28 01/29/20 24 01/30/2024 MAGNE SIUM magnesium 2.1 mg/dL 1.6-2. 3 Not Available [facility] ([facility]) [address] [facility] [place], [address], 01/30/2024 08:22:29 02/26/20 24 02/27/2024 TSH+F REE T4 TSH 1.310 uIU/m L 0.450- 4.500 Not Available [facility] ([facility]) [address] [facility], [place], [address], 02/27/2024 07:15:28 02/26/20 24 02/27/2024 TSH+F REE T4 T4,free(dire ct) 1.83 NG/dL 0.82-1 .77 above high normal Not Available [facility] ([facility]) [address] [facility], [place], [address], 02/27/2024 07:15:28 02/26/20 24 02/26/2024 influ michele virus A + B + SARS- CoV-2 (COVI D19) Ag panel , rapid IA, upper respi rator y speci men FLU A negati ve Not Available [facility] [place] [address] [place], [address], 02/26/2024 10:28:59 02/26/20 24 02/26/2024 influ michele virus A + B + SARS- CoV-2 (COVI D19) Ag panel , rapid IA, upper respi rator y speci men FLU B negati ve Not Available [facility] [place] [address] [place], [address], 02/26/2024 10:28:59 02/26/20 24 02/26/2024 influ michele virus A + B + SARS- CoV-2 (COVI D19) Ag panel , rapid IA, upper respi rator y speci men SARS COV + SARS OV 2 negati ve Not Available [place] [address] [place], [address], 02/26/2024 10:28:59 02/26/20 24 02/26/2024 rapid strep group A, throa t Strep negati ve Not Available [facility] [address] [place], [address], 02/26/2024 10:29:06 05/29/20 24 05/30/2024 TSH+F REE T4 TSH 4.340 uIU/m L 0.450- 4.500 Not Available [facility] ([facility]) [address] [place], [address], 05/30/2024 09:37:58 05/29/20 24 05/30/2024 TSH+F REE T4 T4,free(dire ct) 1.73 NG/dL 0.82-1 .77 Not Available [facility] ([facility]) [address] [place], [address], 05/30/2024 09:37:58 10/22/20 24 10/23/2024 QUANT IFERO N-TB GOLD PLUS quantiferon incubation INCUBA TION PERFOR MED. Not Available [facility] ([facility]) [address] [place], [address], 10/24/2024 16:10:28 10/22/20 24 10/23/2024 QUANT IFERO [...] ol for the test. Not Available [facility] ([facility]) [address] [place], [address], 10/24/2024 16:10:28 10/22/20 24 10/24/2024 QUANT IFERO N-TB GOLD PLUS quantiferon TB1 Ag value 0.01 IU/mL Not Available [facility] [address] [place], [address], 10/24/2024 16:10:28 10/22/20 24 10/24/2024 QUANT IFERO N-TB GOLD PLUS quantiferon TB2 Ag value 0.01 IU/mL Not Available [facility] [address] [place], [address], 10/24/2024 16:10:28 10/22/20 24 10/24/2024 QUANT IFERO N-TB GOLD PLUS quantiferon nil value 0.00 IU/mL Not Available [facility] [address] [place], [address], 10/24/2024 16:10:28 10/22/20 24 10/24/2024 QUANT IFERO N-TB GOLD PLUS quantiferon mitogen value >10.00 IU/mL Not Available [facility] [address] [place], [address], 10/24/2024 16:10:28 10/22/20 24 10/24/2024 QUANT IFERO [...] y metho dolog y Not Available [facility] ([facility]) [address] [facility], [place], [address], 10/24/2024 16:10:28 04/24/20 24 04/23/2024 imagi ng inter preta tion No observ ation record ed. [facility] [address], [place], [address], 04/24/2024 15:59:38 05/06/20 24 05/06/2024 imagi ng inter preta tion No observ ation record ed. [email or web address] [facility] [address], [place], [address], 05/08/2024 11:55:33 Result Notes None recorded. Problems Name Problem SNOMED Code Status Onset Date Resolution Date Notes Provider Name and Address Organization Details Recorded Time Hypothyroidism 59831754 Active 2021 Macrina holguin, [place] - [facility] - [place] [facility] [place] 2 08:38:26 Hyperlipidemia 93082806 Active 2021 Macrina [place] [facility] [place] 2 08:38:31 Gastroesophage al reflux disease 664915773 Active 2021 Macrina Mayer null, [place] [facility] [place] 2 08:38:47 Seasonal allergic rhinitis 011484315 Active 2021 Macrina Mayer null[place] [facility] [place] 2 08:39:11 Essential hypertension 59446552 Active 2021 Macrina [place]guin, [place] [facility] [place] 2 08:39:18 Problem Notes None recorded. Procedures Surgical History Date Name Laterality Status Provider Name and Address Organization Details Recorded Time 04/29/20 23 completed TAVO HOLLINS NP [address] [place], [address], [place] [facility] [place] 05/10/2023 15:29:39 04/04/20 23 Date of Last Pap Smear completed TAVO HOLLINS NP [address] [place], [address], [place] [facility] & [place] 05/10/2023 15:29:39 06/10/20 20 Date of Last Colonoscopy completed TAVO HOLLINS NP [address] [facility], [place], [address], [place] - [facility] - [place] [facility] [place] 05/10/2023 15:29:39 Other completed Macrina ASIF - [facility] - [place] 11/15/2022 08:37:34 Cholecystectomy completed Macrina ASIF - [facility] & [place] 11/15/2022 08:41:26 operative procedure on ovary and/or fallopian tube completed Macrina ASIF - [facility] - [place] 11/15/2022 08:41:55 Imaging Results None recorded. Procedure [...] Updated DateTime 4 154.94 cm 31.9 kg/m2 98429.1 1 g 97.9 [degF] 99 % 99 % 85 /min 119 mm[Hg] 81 mm[Hg] Lee fairchild [facility] & [place] 15:44:14 Social History Question Answer Notes LastModified by Organizat ion Details LastModified Time Tobacco Smoking Status Former Smoker Macrina Leyla holguin, [facility] & [place] 11/15/2022 08:41:14 Do You Have An Advance Directive? No Information not available 11/15/2022 Are You Blind Or Do You Have Difficulty Seeing? No Information not available 11/15/2022 What Is Your Level Of Caffeine Consumption? Occasional Information not available 06/06/2023 When Did You Quit Smoking? 1-5yearssincela martín [email or web address] Information not available 06/06/2023 What Was The Date Of Your Most Recent Tobacco Screening? 01/28/2024 [email or web address] Information not available 01/28/2024 Are You Passively Exposed To Smoke? Yes judit Information not available 05/10/2023 Has Tobacco Cessation Counseling Been Provided? No Information not available 06/06/2023 Sex: Unknown Functional Status Question Answer Note LastModified by Organizat ion Details LastModified Time Do you use any illicit or recreational drugs? No Information not available 11/15/2022 Do you or have you ever used any other forms of tobacco or nicotine? No [email or web address] Information not available 06/06/2023 What is your level of alcohol consumption? None Information not available 11/15/2022 Mental Status None recorded. Family History Relationship Description Onset Age of this Age Resolved Age Notes LastModified by Organization Details LastModified Time Mother Malignant neoplasm of uterus [facility] [place] [place] CHART_MERGE Not available 01/29/2024 13:30:16 Mother Malignant neoplasm of brain [facility] [place] CHART_MERGE Not available 01/29/2024 13:30:16 Father Congestive heart failure [facility] [place] CHART_MERGE Not available 01/29/2024 13:30:16 Brother Motor vehicle accident victim [facility] [place] CHART_MERGE Not available 01/29/2024 13:30:16 Medical History Condition Response Allergies/Hayfever Y Thyroid Problems Y Hypertension Y Hypothyroidism Y High Cholesterol Y Gynecological History Statement/Question [...] Tiffany Montaño null, [place] [facility] [place] 04/23/2023 10:06:30 COVID-19, mRNA, LNP-S, PF, 30 mcg/0.3 mL dose 01/03/2021 completed Tiffany Montaño null, [place] [facility] [place] 04/23/2023 10:06:30 Past Encounters Encounter ID Performer Location Encounter Start Date Encounter Closed Date Diagnosis/Indication Diagnosis SNOMED-CT Code Diagnosis ICD10 Code Diagnosis Note [id number] TAVO HOLLINS NP [id number] [address] [place] [address] 11/15/2022 08:25:06 11/15/2022 09:17:00 Palpitations 67561544 R00.2 appt made for cardiac evaluation 11/27 10:15 AM; recommend holter monitor and stress test and lower ext arterialth yroid and other lab work normal in Aug except C-reactive protein was 55 Essential hypertension 06167464 I10 educated on goal of less than 130/90advi sed low sodium diet, healthy lifestyle including exercise as ablecontin ue current medication regimenER if any symptoms such as chest pain, shortness of breath [id number] TAVO HOLLINS NP [address] [place] [address] 05/10/2023 14:31:12 05/10/2023 15:33:05 Essential hypertension 65791630 I10 educated on goal of less than 130/90meet ing goaladvise d low sodium diet, healthy lifestyle including exercise as ablecontin ue current medication regimenER if any symptoms such as chest pain, shortness of breath labs drawn by judit Hypothyroidism 94853378 E03.9 asymptomat iccontroll ed with medication Osteoarthr itis of multiple joints 808367859 M15.9 controlled Seasonal a llergic rhinitis 044853402 J30.2 controlled Mixed hyperlipidemia 267 503377 E78.2 Patient advised to exercise, eat a prudent diet and lose weight as appropriat e.controll ed [id number] TAVO HOLLINS NP [address] [place] [address] 06/06/2023 15:22:27 06/06/2023 15:54:40 Spasm 67699266 R25.2 Patient presents with recurrent muscle pain/spasm s. Based on history, physical exam, and prior diagnostic studies/tr eatments, I recommend hydration, stretching , physical therapy, muscle relaxer. Discussed treatment plan with patient. [id number] Amado Arellano MD [address] [place] [address] 11/04/2023 11:45:52 11/04/2023 12:13:31 Adult health examination 833898727 Z00.00 [id number] TAVO HOLLINS NP [address] [place] [address] 01/28/2024 15:35:46 01/29/2024 13:31:25 Cough 96972913 R05.9 request refill on albuterol to use as needed with allergies/ season changes Osteoarthr itis of multiple joints 544428949 M15.9 controlled Mixed hyperlipidemia 267 267841 E78.2 Patient advised to exercise, eat a prudent diet and lose weight as appropriat e.controll ed Essential hypertension 62126014 I10 educated on goal of less than 130/90meet ing goaladvise d low sodium diet, healthy lifestyle including exercise as ablecontin ue current medication regimenER if any symptoms such as chest pain, shortness of breath pt will return to clinic for fasting blood work Acquired hypothyroidism 596479391 E03.9 recheck lab work fasting, will return for labtake medication first thing in AM on empty stomach Cramp in lower limb 4499 [address] R25.2 will increase water intakewill return for fasting lab work work including magnesium [id number] Amado Arellano MD [address] [place] [address] 01/29/2024 12:36:41 01/29/2024 12:51:39 Hypothyroidism 43186262 E03.9 Cramp in lower limb 4499 [address] R25.2 Essential hypertension 85468828 I10 [id number] Amado Arellano MD [address] [place] [address] 02/26/2024 10:14:10 02/26/2024 10:34:31 Hypothyroidism 89339504 E03.9 recheck thyroid level today Cough 21956064 R05.9 stay well hydratedre stmedicati ons as prescribed symptomati c management ER if any urgent signs or symptoms arise Sore throat [id number] J0 2.9 warm salt water garglescha nge toothbrush hydrations ymptomatic management f/u if symptoms persist or worsen [id number] TAVO HOLLINS NP [address] [place] [address] 05/29/2024 12:37:47 05/29/2024 12:47:30 Hypothyroidism 69207418 E03.9 recheck thyroid level today [id number] TAVO HOLLINS NP [facility] [address] [facility] [place] [address] 10/22/2024 14:32:02 10/24/2024 03:54:05 Tuberculosis screening [id number] Z11.1 Health Concerns Section Related Observation LastModified by Organization Detai ls LastModified Time None Recorded Concern Status LastModified by Organization Details LastModified Time None Recorded Advance Directives Directive N: Payers Insurance Date Sequence Insurance Name Policy Number Policy Torres Covered Member ID Torres Member ID Guarantor Name 10/22/2024 1 [employer] [id number] Torri Mejia [id number] Torri Mejia Notes Date Note Type [...] seasonal changes /allergies TAVO HOLLINS NP [address] [place], [address], [facility] [place] 01/28/2024 15:59:45 4 text/htm l 48-year-old female who presents to have her thyroidlevel recheck. Taking medication as prescribed 1st thing in the morning. also complains of congestion, cough, sore throat. Her daughter was recently diagnosed with flu and strep throat. Denies any lethargy, fever, chills, nausea, vomiting. TAVO HOLLINS NP [address] [facility], [place], [address], [facility] [place] 02/26/2024 10:49:43 OBGyn Episode No OBEpisode recorded.
--- NOTE | 2025-05-20 06:57 | MR_ITS ---
FINAL REPORT CLINICAL HISTORY: LUMBAR RADICULOPATHY.BIATERAL LBP. INTERMITTENT LEG THROBBING. NO RECENT INJURY OR TRAUMA FINDINGS: Multiplanar MR imaging of the lumbar spine was performed without contrast. On the sagittal T2-weighted images, there is abnormal decreased signal at L4-5 and L5-S1. The vertebrae are of normal height. The vertebral alignment is normal. L1-2: There is no significant canal stenosis or neural foraminal narrowing. L2-3: There is no significant canal stenosis or neural foraminal narrowing. L3-4: There is no significant canal stenosis or neural foraminal narrowing. L4-5: Mild diffuse disc bulge with mild bilateral neuroforaminal narrowing. L5-S1: There is no significant canal stenosis or neural foraminal narrowing. IMPRESSION: Mild degenerative changes as above. Reviewed, Interpreted and Dictated by Shad Hayden MD Transcribed by Gwen Hernandez Authenticated and [facility]
== END 2025-05-20 23:59 | disposition home or self-care (01) ==
PROVIDERS: PCP Nurse Practitioner Family; Visit Provider Physician Assistant
DX: M47.26 Other spondylosis with radiculopathy, lumbar region (principal)
CPT/HCPCS: 72148

== ENCOUNTER 2025-07-28 07:00 | Outpatient (RCR) | payer BC, SELFPAY | END 2025-07-28 23:59 | disposition home or self-care (01) | LOC: PT.CARL 07:00 | PROVIDERS: PCP Nurse Practitioner Family; Visit Provider Nurse Practitioner Family | DX: M53.3 Sacrococcygeal disorders, not elsewhere classified (principal) | CPT/HCPCS: 97110; 97112; 97140; 97161 ==

== ENCOUNTER 2025-08-09 07:00 | Outpatient (RCR) | payer BC, SELFPAY | END 2025-08-09 23:59 | disposition home or self-care (01) | LOC: PT.CARL 07:00 | PROVIDERS: PCP Nurse Practitioner Family; Visit Provider Nurse Practitioner Family | DX: M53.3 Sacrococcygeal disorders, not elsewhere classified (principal) | CPT/HCPCS: 97032; 97110; 97112; 97140 ==